=== PATIENT | female | born 1975 | race Caucasian/White ===

== ENCOUNTER 2018-06-13 14:13 | Emergency (ER) | payer SELFPAY ==
[2018-06-13] MEDS ORDERED: IBUPROFEN 600 MG TABLET PO ONE (15:01)
--- NOTE | 2018-06-13 15:47 | RADIOLOGY REPORT (SQ) ---
EXAM DESCRIPTION: FOOT RIGHT COMPLETE COMPLETED DATE/TIME: 06/13/2018 3:22 pm REASON FOR STUDY: stubbed toe, dorsal foot pain/swelling COMPARISON: None. NUMBER OF VIEWS: Three views. TECHNIQUE: AP, lateral and oblique radiographic images acquired of the right foot. LIMITATIONS: None. FINDINGS: MINERALIZATION: Normal. BONES: No acute fracture or dislocation. No worrisome bone lesions. JOINTS: No effusions. SOFT TISSUES: Diffuse swelling over the forefoot. No foreign body. OTHER: No other significant finding. IMPRESSION: No fracture. TECHNICAL DOCUMENTATION: JOB ID: [id number] [employer]- All Rights Reserved Reading location - IP/workstation name: [email or web address]
--- NOTE | 2018-06-13 16:53 | ER Document Report ---
HPI - HPI Pain Level: 5 Notes: Patient is a female who presents with chief complaint of foot pain. Patient reports she has been having problems with her bilateral heels so she has been walking on the balls of her feet. She states that approximately 1 week ago she hit the front of her toe on a door jam, she reports it is the fourth toe on the right foot, she thinks it may be broken. Patient also reports she has chronic swelling of her ankles which she has been seen by her primary care provider for. She states she has taken diuretics before however they did not help so she stopped taking them. - CONSTITUTIONAL Constitutional: DENIES: Fever, Chills - EENT EENT: DENIES: Sore Throat, Ear Pain, Eye problems - NEURO Neurology: DENIES: Headache, Weakness, Vision blurred, Dizzinesss / Vertigo - CARDIOVASCULAR Cardiovascular: DENIES: Chest pain - RESPIRATORY Respiratory: DENIES: Trouble Breathing, Coughing - GASTROINTESTINAL Gastrointestinal: DENIES: Abdominal Pain, Black / Bloody Stools - URINARY Urinary: DENIES: Dysuria, Urgency, Frequency - MUSCULOSKELETAL Musculoskeletal: REPORTS: Extremity pain - right foot Past Medical History - General Information source: Patient - Social History Smoking Status: Current Every Day Smoker Chew tobacco use (# tins/day): No Frequency of alcohol use: None Drug Abuse: None Family History: Reviewed & Not Pertinent Patient has suicidal ideation: No Patient has homicidal ideation: No Endocrine Medical History: Reports: Hx Diabetes Mellitus Type 2 Renal/ Medical History: Denies: Hx Peritoneal Dialysis Past Surgical History: Reports: Hx Breast Surgery - augmentation Vertical Provider Document - CONSTITUTIONAL Notes: PHYSICAL EXAMINATION: GENERAL: Well-appearing, well-nourished and in no acute distress. HEAD: Atraumatic, normocephalic. EYES: Pupils equal round extraocular movements intact, conjunctiva are normal. ENT: Nares patent NECK: Normal range of motion LUNGS: No respiratory distress Musculoskeletal: Normal range of motion, tenderness to palpation to dorsal surface of right foot superior to the fourth digit. Cap refill is less than 3 seconds, normal motor and sensation distal to area of concern. Normal pulses. NEUROLOGICAL: Normal speech, normal gait. PSYCH: Normal mood, normal affect. SKIN: Warm, Dry, normal turgor, no rashes or lesions noted. - INFECTION CONTROL TRAVEL OUTSIDE OF THE [place] IN LAST 30 DAYS: No Course - Re-evaluation Re-evalutation: X-rays negative for any acute findings to include fracture or dislocation. Patient will be placed with an Sterling wrap and given crutches for discomfort. Patient instructed to take ibuprofen and ice and elevate. Patient given information for primary care providers that she states she currently does not have one. Procedures - Immobilization Right foot Immobilizer type: Sterling wrap, Crutches Discharge - Discharge Clinical Impression: Right foot injury Qualifiers: Encounter type: initial encounter Qualified Code(s): S99.921A - Unspecified injury of right foot, initial encounter Condition: Stable Disposition: HOME, SELF-CARE Additional Instructions: SPRAIN: Your injury is a sprain. A sprain results from stretching or tearing of the ligaments, usually from a twisting injury. The ligaments will require time and protection in order to heal properly. Many sprains are quite disabling and should be taken seriously. The usual initial treatment of sprains is cold packs, elevation, and rest of the injured area. Your physician has assessed the seriousness of your ligament injury, and has outlined a treatment plan. Understand that this treatment may change, depending on how you progress. If a re-examination was recommended, it is important that you follow up as instructed. Call the doctor any time if there is severe pain, numbness, or loss of function in the injured area. STERLING WRAP: A compression dressing (sterling wrap) has been placed. This helps hold the area still. It limits swelling and internal bleeding. The wrap should be comfortably snug -- not tight. You should feel a sense of pressure, but not severe pain under the wrap. Unless the physician tells you otherwise, you can adjust the wrap for comfort. If the wrap causes symptoms suggesting it's too tight -- uncomfortable pressure, swelling or discoloration beyond the wrap, numbness, or severe pain - - you must loosen the wrap. If these symptoms don't resolve promptly, return for re-evaluation. USE OF CRUTCHES: The doctor has recommended that you not bear weight at this time. You will need to use crutches. Adjust the crutches so the tops come to about two inches under the armpit while you are standing upright. Use your hands -- not your armpits -- to support your weight. To get into a chair, support yourself with one crutch on the injured side. Hold the chair with the other hand, then lower yourself while putting all your weight on the good leg. Going up stairs is `good leg up, step up, then bring up crutches and bad leg.' Down stairs is `bad leg and crutches down, then bring good leg down.' If you develop numbness or swelling in an arm or hand, you are using the crutches incorrectly. Return if you are having any problems with the crutches. ICE & ELEVATION: Apply ice packs frequently against the painful area. Many different schedules are recommended, such as "20 minutes on, 20 minutes off" or "one hour ice, two hours rest." If you need to work, you may need to go longer between ice treatments. You should plan to have the area ice packed AT LEAST one- fourth of the time. The ice should be applied over the wrap, tape, or splint, or over a layer of cloth -- not directly against the skin. Some ice bags have a built-in cloth and can be put directly on the skin. Your injured part should be elevated as much as possible over the next 48 hours. Try to keep the injury above the level of the heart. Avoid use of the injured area. Elevation and rest will decrease the swelling. USE OF [id number]-[id number] IBUPROFEN: Ibuprofen (Advil, Nuprin, Medipren, Motrin IB) is a medication for fever and pain control. In addition, it has anti- inflammatory effects which may be beneficial, especially in the treatment of injuries. It's best to take ibuprofen with food. Persons with ulcer disease or allergy to aspirin should notify their physician of this before taking ibuprofen. Ibuprofen can be given every four to six hours, for a total of four doses daily. Age Pain or fever dose Antiinflammatory dose 15-adult 400 mg (2 tab) 600 mg (3 tab) FOLLOW-UP CARE: If you have been referred to a physician for follow-up care, call the physician s office for an appointment as you were instructed or within the next two days. If you experience worsening or a significant change in your symptoms, notify the physician immediately or return to the Emergency Department at any time for re-evaluation. The x-ray done today was negative meaning there is no fracture or dislocation in your foot. Please use the Sterling wrap for comfort and compression. Take ibuprofen 600 mg every 6 hours for pain and inflammation. Ice and elevate as outlined above. Use the crutches to help you get around. Follow-up with your primary care provider in the next 5-7 days.
== END 2018-06-13 17:15 | disposition home or self-care (01) ==
LOC: ER 14:13
DX: S99.921A Unspecified injury of right foot, initial encounter (principal); W22.09XA Striking against other stationary object, initial encounter; M79.89 Other specified soft tissue disorders; F17.200 Nicotine dependence, unspecified, uncomplicated; E11.9 Type 2 diabetes mellitus without complications
CPT/HCPCS: 99283

== ENCOUNTER 2018-06-17 12:02 | Inpatient (IN) | payer SELFPAY ==
--- NOTE | 2018-06-17 13:14 | ER Document Report ---
ED Medical Screen (RME) - General Chief Complaint: Foot Pain Stated Complaint: PAIN/SWELLING TO RIGHT FOOT Time Seen by Provider: 06/17/18 13:03 Mode of Arrival: Ambulatory Information source: Patient Notes: 42-year-old female presents emergency department with complaints of bilateral leg and feet pain. Patient states that her right lower extremity began hurting a week and a half ago. She was seen in the emergency department and discharged home. Patient states that now her bilateral feet are turning purple. She is having worsening pain in her bilateral feet. She is having increased swelling in her legs. Patient denies any chest pain or shortness of breath. I have greeted and performed a rapid initial assessment of this patient. A comprehensive ED assessment and evaluation of the patient, analysis of test results and completion of the medical decision making process will be conducted by additional ED providers. PHYSICAL EXAMINATION: GENERAL: Well-appearing, well-nourished and in no acute distress. HEAD: Atraumatic, normocephalic. EYES: Pupils equal round extraocular movements intact, conjunctiva are normal. ENT: Nares patent NECK: Normal range of motion LUNGS: No respiratory distress Musculoskeletal: Normal range of motion. Bilateral calf tenderness to palpation. 2+ pitting edema. Bilateral purple toes. Unable to obtain pulses in the bilateral feet. NEUROLOGICAL: Normal speech, normal gait. PSYCH: Normal mood, normal affect. SKIN: Warm, Dry, normal turgor, no rashes or lesions noted. TRAVEL OUTSIDE OF THE [place] IN LAST 30 DAYS: No - Related Data Allergies/Adverse Reactions: No Known Allergies Allergy (Verified 06/17/18 12:03) Past Medical History - Social History Frequency of alcohol use: None Drug Abuse: None Endocrine Medical History: Reports: Hx Diabetes Mellitus Type 2 Renal/ Medical History: Denies: Hx Peritoneal Dialysis Past Surgical History: Reports: Hx Breast Surgery - augmentation Physical Exam - Vital signs Vitals: Temp Pulse Resp BP Pulse Ox 98.0 F 92 18 123/72 100 06/17/18 12:06 06/17/18 12:06 06/17/18 12:06 06/17/18 12:06 06/17/18 12:06 Course - Vital Signs Vital signs: Temp Pulse Resp BP Pulse Ox 98.0 F 92 18 123/72 100 06/17/18 12:06 06/17/18 12:06 06/17/18 12:06 06/17/18 12:06 06/17/18 12:06
--- NOTE | 2018-06-17 15:47 | ER Document Report ---
ED Extremity Problem, Lower - General Chief Complaint: Foot Pain Stated Complaint: PAIN/SWELLING TO RIGHT FOOT Time Seen by Provider: 06/17/18 13:03 Mode of Arrival: Ambulatory Information source: Patient Notes: 42-year-old female presents to ED for complaint of bilateral leg and feet swelling. She states she had pain and swelling about a week ago when she was seen in the emergency room and sent home. She states recently she was seen in [place] and told that she had ovarian tumors and needed to come out right away. She was told that she had to pay $600 upfront and she states she did not have $600. She states she also was seen in [place] about 2 months and they told her she had severe colitis and that she needed to have a colonoscopy but she did not have the money for the colonoscopy so she has not had that either. She states she is continuing to have new symptoms and does not have money for insurance or for hospital bills. TRAVEL OUTSIDE OF THE [place] IN LAST 30 DAYS: No - HPI Patient complains to provider of: Pain Location: Ankle, Foot, Knee, Leg, Thigh Occurred: Other - Last 1-2 weeks Onset/Duration: Gradual, Worse Quality of pain: Dull, Pressure, Stabbing, Throbbing Severity: Severe Pain Level: 5 Recent injury: No Associated symptoms: Painful ambulation Exacerbated by: Movement, Walking Relieved by: Nothing - Related Data Allergies/Adverse Reactions: No Known Allergies Allergy (Verified 06/17/18 12:03) Past Medical History - General Information source: Patient - Social History Smoking Status: Current Every Day Smoker Cigarette use (# per day): Yes - Half to 1 packs/day Chew tobacco use (# tins/day): No Smoking Education Provided: Yes - 4 minutes Frequency of alcohol use: None Drug Abuse: None Lives with: Parents Family History: Reviewed & Not Pertinent Patient has suicidal ideation: No Patient has homicidal ideation: No - Past Medical History Cardiac Medical History: Reports: None Pulmonary Medical History: Reports: None EENT Medical History: Reports: None Neurological Medical History: Reports: None Endocrine Medical History: Reports: Hx Diabetes Mellitus Type 2 Renal/ Medical History: Reports: Other - Ovarian tumors Malignancy Medical History: Reports: None GI Medical History: Reports: Other - Colitis Musculoskeletal Medical History: Reports None Skin Medical History: Reports None Psychiatric Medical History: Reports: None Traumatic Medical History: Reports: None Infectious Medical History: Reports: None Past Surgical History: Reports: Hx Breast Surgery - augmentation - Immunizations Immunizations up to date: No Hx Diphtheria, Pertussis, Tetanus Vaccination: No Review of Systems - Review of Systems Constitutional: No symptoms reported EENT: No symptoms reported Cardiovascular: No symptoms reported Respiratory: No symptoms reported Gastrointestinal: Abdominal pain Genitourinary: No symptoms reported Female Genitourinary: Other - Pelvic pain Musculoskeletal: Leg swelling, Ankle swelling Skin: No symptoms reported Hematologic/Lymphatic: No symptoms reported Neurological/Psychological: No symptoms reported -: Yes All other systems reviewed and negative Physical Exam - Vital signs Vitals: Temp Pulse Resp BP Pulse Ox 98.0 F 92 18 123/72 100 06/17/18 12:06 06/17/18 12:06 06/17/18 12:06 06/17/18 12:06 06/17/18 12:06 Interpretation: Normal - General General appearance: Appears well, Alert - HEENT Head: Normocephalic, Atraumatic Eyes: Normal Pupils: PERRL - Respiratory Respiratory status: No respiratory distress Chest status: Nontender Breath sounds: Normal Chest palpation: Normal - Cardiovascular Rhythm: Regular Heart sounds: Normal auscultation Murmur: No - Abdominal Inspection: Normal Distension: No distension Bowel sounds: Normal Tenderness: Nontender Organomegaly: No organomegaly - Back Back: Normal, Nontender - Extremities General upper extremity: Normal inspection, Nontender, Normal color, Normal ROM , Normal temperature General lower extremity: Normal ROM, Normal temperature, Normal weight bearing. No: Chari's sign Thigh: Tender Knee: Pain with ROM, Patellar tendon intact, Other - Swelling. No: Tender joint line, Unable to bear weight Calf: Tender, Other - Swelling Ankle: Tender, Edema - 3+ Foot: Tender, Edema - 2+, No evidence of FB - Neurological Neuro grossly intact: Yes Cognition: Normal Orientation: AAOx4 Walt Coma Scale Eye Opening: Spontaneous Crowder Coma Scale Verbal: Oriented Crowder Coma Scale Motor: Obeys Commands Walt Coma Scale Total: 15 Speech: Normal Motor strength normal: LUE, RUE, LLE, RLE Sensory: Normal - Psychological Associated symptoms: Normal affect, Normal mood - Skin Skin Temperature: Warm Skin Moisture: Dry Skin Color: Normal Location of irregularity: Extremities - Edema discoloration swelling tender Course - Vital Signs Vital signs: Temp Pulse Resp BP Pulse Ox 97.7 F 87 17 104/60 100 06/18/18 00:31 06/18/18 00:31 06/18/18 00:31 06/18/18 00:31 06/18/18 00:31 - Laboratory Result Diagrams: 06/17/18 16:00 06/17/18 16:00 Laboratory results interpreted by me: 06/17/18 06/17/18 06/17/18 16:00 16:00 16:00 BUN 24 H Carcinoembryonic Ag 5.5 H Urine Blood MODERATE H Ur Leukocyte Esterase TRACE H Discharge - Discharge Clinical Impression: Pulmonary nodule, Liver nodule, SCLEROTIC OSSEOUS LESIONS Disposition: ADMITTED INPATIENT Admitting Provider: Hospitalist - [facility] Unit Admitted: Medical Floor
[2018-06-17 16:20] LABS: ABSOLUTE BASOPHILS # (AUTO) 0.1 10^3/uL (0.0-0.2); ABSOLUTE EOSINOPHILS # (AUTO) 0.3 10^3/uL (0.0-0.6); ABSOLUTE LYMPHOCYTES (AUTO) 2.1 10^3/uL (0.5-4.7); ABSOLUTE MONOCYTES (AUTO) 0.6 10^3/uL (0.1-1.4); ABSOLUTE NEUT (AUTO) 5.6 10^3/uL (1.7-8.2); BASOPHILS % (AUTO) 1.2 % (0-2); EOSINOPHILS % (AUTO) 3.9 % (0-6); HEMATOCRIT 38.9 % (36.0-47.0); HEMOGLOBIN 13.2 g/dL (12.0-15.5); LYMPHOCYTES % (AUTO) 24.3 % (13-45); MEAN CORPUSCULAR VOLUME 88 fl (80-97); MONOCYTES % (AUTO) 6.5 % (3-13); PLATELET COUNT 365 10^3/uL (150-450); RED BLOOD COUNT 4.41 10^6/uL (3.72-5.28); RED CELL DISTRIBUTION WIDTH 13.8 % (11.5-14.0); SEGMENTED NEUTROPHILS % (AUTO) 64.1 % (42-78); TOTAL CELLS COUNTED % (AUTO) 100 %; WHITE BLOOD COUNT 8.8 10^3/uL (4.0-10.5)
[2018-06-17 16:28] LABS: ALANINE AMINOTRANSFERASE 21 U/L (9-52); ALBUMIN 4.5 g/dL (3.5-5.0); ALKALINE PHOSPHATASE 100 U/L (38-126); ANION GAP 11 (5-19); ASPARTATE AMINO TRANSFERASE 26 U/L (14-36); BILIRUBIN,DIRECT 0.2 mg/dL (0.0-0.4); BILIRUBIN,TOTAL 0.7 mg/dL (0.2-1.3); BLOOD UREA NITROGEN 24 mg/dL (7-20); CALCIUM 9.3 mg/dL (8.4-10.2); CARBON DIOXIDE 25 mmol/L (22-30); CHLORIDE 107 mmol/L (98-107); GLUCOSE 95 mg/dL (75-110); SODIUM 142.9 mmol/L (137-145); TOTAL PROTEIN 7.9 g/dL (6.3-8.2)
[2018-06-17 16:36] LABS: APPEARANCE,URINE SLIGHTLY-CLOUDY; BILIRUBIN,URINE NEGATIVE (NEGATIVE); COLOR,URINE YELLOW; GLUCOSE, URINE NEGATIVE (NEGATIVE); KETONES,URINE NEGATIVE (NEGATIVE); LEUKOCYTE ESTERASE,URINE TRACE (NEGATIVE); NITRITE,URINE NEGATIVE (NEGATIVE); PROTEIN,URINE NEGATIVE (NEGATIVE); URINE SPECIFIC GRAVITY 1.027; UROBILINOGEN,URINE NEGATIVE mg/dL (<2.0)
--- NOTE | 2018-06-17 16:48 | RADIOLOGY REPORT (SQ) ---
EXAM DESCRIPTION: CT ABD/PELVIS WITH IV ONLY COMPLETED DATE/TIME: 06/17/2018 4:22 pm REASON FOR STUDY: abdominal pain hx of ovarian tumor pedal edema COMPARISON: None. TECHNIQUE: CT scan of the abdomen and pelvis performed using helical scanning technique with dynamic intravenous contrast injection. No oral contrast. Images reviewed with lung, soft tissue, and bone windows. Reconstructed coronal and sagittal MPR images reviewed. Delayed images for evaluation of the urinary system also acquired. All images stored on PACS. All CT scanners at this facility use dose modulation, iterative reconstruction, and/or weight based d osing when appropriate to reduce radiation dose to as low as reasonably achievable (ALARA). [facility]: Dose Right [facility]: CareDose [facility]: Dose Right [facility]: Teradose 4D [facility]: [employer] CONTRAST TYPE AND DOSE: contrast/concentration: Isovue 350.00 mg/ml; Total Contrast Delivered: 82.0 ml; Total Saline Delivered: 68.0 ml RENAL FUNCTION: None required. The patient is less than 50 years old. RADIATION DOSE: CT Rad equipment meets quality standard of care and radiation dose reduction techniq ues were employed. CTDIvol: NaN - NaN mGy. DLP: 0 mGy-cm.. LIMITATIONS: None. FINDINGS: LOWER CHEST: There scattered small peripheral pulmonary nodules. See image 1 and image 10 . Other, pinpoint nodules are suggested. LIVER: A couple small low-density lesions are seen in the right lobe. The larger is seen on image 28 series 3 and image 34 series 5. This measures about 12 or 13 mm. SPLEEN: Normal size. No focal lesions. PANCREAS: No masses. No significant calcifications. No adjacent inflammation or peripancreatic fluid collections. Pancreatic duct not dilated. GALLBLADDER: Contracted. No stones. ADRENAL GLANDS: No significant masses or asymmetry. RIGHT KIDNEY AND URETER: No solid masses. No significant calcifications. No hydronephrosis or hyd roureter. LEFT KIDNEY AND URETER: No solid masses. No significant calcifications. No hydronephrosis or hydr oureter. AORTA AND VESSELS: No aneurysm. No dissection. Renal arteries, SMA, celiac without stenosis. RETROPERITONEUM: No retroperitoneal adenopathy, hemorrhage or masses. BOWEL AND PERITONEAL CAVITY: No masses or inflammatory changes. No free fluid or peritoneal masses. APPENDIX: Normal. PELVIS: There is a 3 x 4 cm left adnexal cyst. There is no free fluid in the pelvis. Urinary bladde r is incompletely filled but otherwise unremarkable. ABDOMINAL WALL: No masses. No hernias. BONES: There are several sclerotic lesions in the bones of the pelvis concerning for metastases. OTHER: No other significant finding. IMPRESSION: 1. There are several very small pulmonary nodules concerning for metastases. 2. There are 2 low-density hepatic lesions. The larger shows early enhancement but appears to washo ut slightly compared to the surrounding hepatic parenchyma. 3. There are some small sclerotic osseous lesions. Concerning for metastases. 4. There is a 3 x 4 cm left adnexal cyst. TECHNICAL DOCUMENTATION: JOB ID: [id number] Quality ID # [id number]: Final reports with documentation of one or more dose reduction techniques (e.g., Au tomated exposure control, adjustment of the mA and/or kV according to patient size, use of iterative reconstruction technique) 2010 [employer]- All Rights Reserved Reading location - IP/workstation name: [email or web address]
--- NOTE | 2018-06-17 18:13 | PDOC H&P ---
History of Present Illness Admission Date/PCP: 06/17/18 17:48 Patient complains of: Bilateral lower extremity swelling History of Present Illness: PHILIPP KOENIG is a 42 year old female very unfortunate lady with no significant past medical history presents to ED complaining of worsening lateral lower extremity edema and pain. She states for the last 1 year she has been having on and off random musculoskeletal pain and excessive weight gain and abdominal bloating. She did not make too much of it but over a year ago year ago she was evaluated at [facility] was told that she has an ovarian mass which could likely be cancerous and it had need to come out right away but unfortunately could not undergo any type of evaluation due to financial reasons. Denies any family history of malignancy. She is currently taking care of her mother. Denies any fever, chills, nausea, vomiting, chest pain, shortness of breath, diarrhea, constipation or any urinary symptoms. In ED a CT of abdomen showed possible metastatic lesions to the lung and liver. Oncologist was consulted and they recommended for the patient to be admitted as inpatient. Past Medical History Cardiac Medical History: Reports: None Pulmonary Medical History: Reports: None NT Medical History: Reports: None Neurological Medical History: Reports: None Endocrine Medical History: Reports: Diabetes Mellitus Type 2 Renal/ Medical History: Reports: Other - Ovarian tumors Malignancy Medical History: Reports: None GI Medical History: Reports: Other - Colitis Musculoskeltal Medical History: Reports: None Skin Medical History: Reports: None Psychiatric Medical History: Reports: None Traumatic Medical History: Reports: None Infectious Medical History: Reports: None Social History Lives with: Parents Smoking Status: Current Every Day Smoker Family History Family History: Reviewed & Not Pertinent Parental Family History Reviewed: Yes Children Family History Reviewed: Yes Sibling(s) Family History Reviewed.: Yes Medication/Allergy Home Medications: No Home Medications 06/17/18 Allergies/Adverse Reactions: No Known Allergies Allergy (Verified 06/17/18 12:03) Review of Systems Constitutional: PRESENT: fatigue, weight gain Respiratory: ABSENT: cough, hemoptysis Gastrointestinal: PRESENT: bloating. ABSENT: abdominal pain, constipation, diarrhea, hematemesis, hematochezia, nausea, vomiting Genitourinary: ABSENT: dysuria, hematuria Musculoskeletal: PRESENT: other - Lateral lower extremity pain and numbness. Integumentary: ABSENT: rash, wounds Neurological: PRESENT: numbness, paresthesias - Bilateral lower extremity numbness and paresthesias. ABSENT: abnormal gait, abnormal speech, confusion, dizziness, focal weakness, syncope Physical Exam Vital Signs: Temp Pulse Resp BP Pulse Ox 97.8 F 92 18 127/81 H 100 06/17/18 17:34 06/17/18 17:34 06/17/18 17:34 06/17/18 17:34 06/17/18 17:34 General appearance: PRESENT: no acute distress, well-developed, well-nourished Head exam: PRESENT: atraumatic, normocephalic Neck exam: ABSENT: carotid bruit, JVD, lymphadenopathy, thyromegaly Respiratory exam: PRESENT: clear to auscultation shadia. ABSENT: rales, rhonchi, wheezes Cardiovascular exam: PRESENT: RRR. ABSENT: diastolic murmur, rubs, systolic murmur Pulses: PRESENT: normal dorsalis pedis pul GI/Abdominal exam: PRESENT: normal bowel sounds, soft. ABSENT: distended, guarding, mass, organolmegaly, rebound, tenderness Extremities exam: PRESENT: full ROM, pedal edema, other - Bilateral lower extremity nonpitting edema.. ABSENT: calf tenderness, clubbing Neurological exam: PRESENT: alert, awake, oriented to person, oriented to place , oriented to time, oriented to situation, CN II-XII grossly intact. ABSENT: motor sensory deficit Results Impressions: Abdomen/Pelvis CT 06/17/18 15:39 IMPRESSION: 1. There are several very small pulmonary nodules concerning for metastases. 2. There are 2 low-density hepatic lesions. The larger shows early enhancement but appears to washout slightly compared to the surrounding hepatic parenchyma. 3. There are some small sclerotic osseous lesions. Concerning for metastases. 4. There is a 3 x 4 cm left adnexal cyst. Assessment & Plan - Diagnosis (1) Ovarian cancer Is this a current diagnosis for this admission?: Yes Plan: Likely metastatic ovarian cancer. Admit to medical floor. Will obtain brain and chest CT. Consult oncology for further recommendation. (2) Metastatic cancer to liver Is this a current diagnosis for this admission?: Yes Plan: #1 (3) Swelling of both lower extremities Is this a current diagnosis for this admission?: Yes Plan: Likely complication of metastatic ovarian cancer. Supportive management. Follow oncology recommendation.
[2018-06-17] MEDS ORDERED: PROMETHAZINE HCL 25 MG TABLET PO PRN (18:20)
[2018-06-17] MEDS ORDERED: IPRATROPIUM/ALBUTEROL 0.5-2.5 MG/3 ML AMPUL NEB PRN (18:20)
[2018-06-17] MEDS ORDERED: ACETAMINOPHEN 325 MG TABLET PO PRN (18:20)
--- NOTE | 2018-06-17 18:34 | XCELERA REPORT ---
[address] [facility] [address] Lower Extremity Venous Evaluation Procedure: Color flow and duplex imaging bilaterally of the veins of the lower extremities as well as the Common Femoral veins. Right Sided Venous Evaluation Normal vessel filling wall to wall, compression and augmentation as well as Colour flow down to the infrageniculate veins. Left Sided Venous Evaluation Normal vessel filling wall to wall, compression and augmentation as well as Colour flow down to the infrageniculate veins. Interpretation Summary No duplex evidence of DVT or obstruction in the bilateral lower extremities. Name: PHILIPP KOENIG Age: 42 yrs Gender: Female : 1975 Patient Status: Emergency Patient Location: ER Study Date: 06/17/2018 01:48 PM Reason For Study: pain right leg / Hx clots Ordering Physician: ESTRELLITA ORTIZ Performed By: Aide Pablo : ESTRELLITA ORTIZ > Junior Llanos
[2018-06-17] MEDS ORDERED: ENOXAPARIN SODIUM INJ 40 MG/0.4 ML DISP.SYRIN SUBCUT ONE (19:00)
[2018-06-17] MEDS: OXYCODONE-ACETAMINOPHEN 5-325 MG TABLET PO PRN (19:02)
--- NOTE | 2018-06-17 19:45 | RADIOLOGY REPORT (SQ) ---
EXAM DESCRIPTION: CT HEAD WITHOUT COMPLETED DATE/TIME: 06/17/2018 7:01 pm REASON FOR STUDY: Metastatic ovarian cancer COMPARISON: None. TECHNIQUE: Axial images acquired through the brain without intravenous contrast. Images reviewed wi th bone, brain and subdural windows. Additional sagittal and coronal reconstructions were generated. Images stored on PACS. All CT scanners at this facility use dose modulation, iterative reconstruction, and/or weight based d osing when appropriate to reduce radiation dose to as low as reasonably achievable (ALARA). [facility]: Dose Right [facility]: CareDose [facility]: Dose Right [facility]: Teradose 4D [facility]: Smart [employer] RADIATION DOSE: CT Rad equipment meets quality standard of care and radiation dose reduction techniq ues were employed. CTDIvol: 53.2 mGy. DLP: 1150 mGy-cm. mGy. LIMITATIONS: None. FINDINGS: VENTRICLES: Normal size and contour. CEREBRUM: No masses. No hemorrhage. No midline shift. No evidence for acute infarction. Normal gra y/white matter differentiation. No areas of low density in the white matter. CEREBELLUM: No masses. No hemorrhage. No alteration of density. No evidence for acute infarction. EXTRAAXIAL SPACES: No fluid collections. No masses. ORBITS AND GLOBE: No intra- or extraconal masses. Normal contour of globe without masses. CALVARIUM: No fracture. PARANASAL SINUSES: No fluid or mucosal thickening. SOFT TISSUES: No mass or hematoma. OTHER: No other significant finding. IMPRESSION: NORMAL BRAIN CT WITHOUT CONTRAST. EVIDENCE OF ACUTE STROKE: NO. COMMENT: Quality ID # [id number]: Final reports with documentation of one or more dose reduction techniques (e.g., Automated exposure control, adjustment of the mA and/or kV according to patient size, use of iterative reconstruction technique) TECHNICAL DOCUMENTATION: JOB ID: [id number] [employer]- All Rights Reserved Reading location - IP/workstation name: [email or web address]
--- NOTE | 2018-06-17 19:48 | RADIOLOGY REPORT (SQ) ---
EXAM DESCRIPTION: CT CHEST WITHOUT COMPLETED DATE/TIME: 06/17/2018 7:01 pm REASON FOR STUDY: Metastatic ovarian cancer COMPARISON: None. TECHNIQUE: CT scan performed of the chest without intravenous contrast. Images reviewed with lung, soft tissue and bone windows. Reconstructed coronal and sagittal MPR images reviewed. All images st ored on PACS. All CT scanners at this facility use dose modulation, iterative reconstruction, and/or weight based d osing when appropriate to reduce radiation dose to as low as reasonably achievable (ALARA). [facility]: Dose Right [facility]: CareDose [facility]: Dose Right [facility]: Teradose 4D [facility]: [employer] RADIATION DOSE: CT Rad equipment meets quality standard of care and radiation dose reduction techniq ues were employed. CTDIvol: 14.4 mGy. DLP: 559 mGy-cm. mGy. LIMITATIONS: No technical limitations. FINDINGS: LUNGS AND PLEURA: No masses, infiltrates, or pneumothorax. No pleural effusions or pleura l calcifications. HILAR AND MEDIASTINAL STRUCTURES: No identified masses or abnormal nodes. No obvious aneurysm. HEART AND VASCULAR STRUCTURES: No aneurysm. No pericardial effusion. UPPER ABDOMEN: See separate report of the CT of the abdomen. THYROID AND OTHER SOFT TISSUES: No masses. No adenopathy. BONES: No significant finding. HARDWARE: None in the chest. OTHER: No other significant findings. IMPRESSION: NO SIGNIFICANT FINDING ON NON-CONTRASTED CHEST CT. TECHNICAL DOCUMENTATION: JOB ID: [id number] Quality ID # [id number]: Final reports with documentation of one or more dose reduction techniques (e.g., Au tomated exposure control, adjustment of the mA and/or kV according to patient size, use of iterative reconstruction technique) 2010 [employer]- All Rights Reserved Reading location - IP/workstation name: [email or web address]
[2018-06-17] MEDS: ZOLPIDEM TARTRATE 5 MG TABLET PO SCH (21:30)
[2018-06-17] MEDS: FAMOTIDINE 20 MG TABLET PO SCH (21:30)
[2018-06-18] MEDS: OXYCODONE-ACETAMINOPHEN 5-325 MG TABLET PO PRN ×2 (05:38→20:32)
[2018-06-18 06:04] LABS: ABSOLUTE BASOPHILS # (AUTO) 0.1 10^3/uL (0.0-0.2); ABSOLUTE EOSINOPHILS # (AUTO) 0.3 10^3/uL (0.0-0.6); ABSOLUTE LYMPHOCYTES (AUTO) 2.8 10^3/uL (0.5-4.7); ABSOLUTE MONOCYTES (AUTO) 0.5 10^3/uL (0.1-1.4); BASOPHILS % (AUTO) 0.9 % (0-2); EOSINOPHILS % (AUTO) 4.2 % (0-6); HEMATOCRIT 36.4 % (36.0-47.0); HEMOGLOBIN 12.5 g/dL (12.0-15.5); LYMPHOCYTES % (AUTO) 36.3 % (13-45); MEAN CORPUSCULAR HEMOGLOBIN 30.2 pg (27.0-33.4); MEAN CORPUSCULAR HGB CONC 34.3 g/dL (32.0-36.0); MEAN CORPUSCULAR VOLUME 88 fl (80-97); MONOCYTES % (AUTO) 6.9 % (3-13); PLATELET COUNT 314 10^3/uL (150-450); RED BLOOD COUNT 4.13 10^6/uL (3.72-5.28); RED CELL DISTRIBUTION WIDTH 13.7 % (11.5-14.0); SEGMENTED NEUTROPHILS % (AUTO) 51.7 % (42-78); TOTAL CELLS COUNTED % (AUTO) 100 %; WHITE BLOOD COUNT 7.7 10^3/uL (4.0-10.5)
[2018-06-18 06:22] LABS: ALANINE AMINOTRANSFERASE 17 U/L (9-52); ALBUMIN 3.7 g/dL (3.5-5.0); ALKALINE PHOSPHATASE 72 U/L (38-126); ANION GAP 7 (5-19); ASPARTATE AMINO TRANSFERASE 22 U/L (14-36); BILIRUBIN,DIRECT 0.2 mg/dL (0.0-0.4); BILIRUBIN,TOTAL 0.7 mg/dL (0.2-1.3); BLOOD UREA NITROGEN 17 mg/dL (7-20); CALCIUM 8.9 mg/dL (8.4-10.2); CARBON DIOXIDE 27 mmol/L (22-30); CHLORIDE 107 mmol/L (98-107); GLUCOSE 94 mg/dL (75-110); POTASSIUM 4.3 mmol/L (3.6-5.0); TOTAL PROTEIN 6.6 g/dL (6.3-8.2)
--- NOTE | 2018-06-18 08:45 | PDOC CONSULTATION ---
Consultation Consult Date: 06/18/18 Attending physician:: ROBERTO IRVIN Consult reason:: Patient with long-standing ovarian cyst but new findings of liver lesions, bone lesions, lesions History of Present Illness Admission Date/PCP: 06/17/18 17:48 Patient complains of: Bilateral lower extremity swelling, weight gain, severe constipation with BRBPR History of Present Illness: PHILIPP KOENIG is a 42 year old female with recent history of worsening constipation. She has had constipation for many years, but over the last 6 months it is became severe, and she has noticed BRBPR. Apparently several months ago she had a CT scan done at [facility], and was told that she has "colitis" and that she needs a colonoscopy. However, unfortunately , she is uninsured so she was not able to get that done, instead her PCP at [facility] apparently sent a Cologuard stool sample that apparently was negative. In the last few weeks she is noticed bilateral lower extremity edema, and weight gain. She presented here and had CT of the chest abdomen pelvis, CT of the abdomen pelvis indicated a 3 x 4 cm left adnexal cyst (of note , the patient tells me that she has had a cyst in the left ovary for 10 years, thus far they have only been monitoring it in the past), but also two liver lesions, multiple subcentimeter pulmonary nodules, and sclerotic bone lesions. I was called from the ED yesterday, and I recommended them to send a CA 125 which is pending as well as a CEA which is elevated at 5.5. Of note, she does have strong family history of malignancy with a maternal grandmother who at age 53 of colon cancer, a sister who had endometrial cancer, status post total hysterectomy. Apparently her mother also had a total hysterectomy at an early age for cervical cancer. Past Medical History Cardiac Medical History: Reports: None Pulmonary Medical History: Reports: None EENT Medical History: Reports: None Neurological Medical History: Reports: None Endocrine Medical History: Reports: Other - Hypoglycemia Renal/ Medical History: Reports: Other - Ovarian cyst, left long-standing Malignancy Medical History: Reports: None GI Medical History: Reports: Other - Colitis Musculoskeltal Medical History: Reports: None Skin Medical History: Reports: None Psychiatric Medical History: Reports: None Traumatic Medical History: Reports: None Infectious Medical History: Reports: None Past Surgical History Past Surgical History: Reports: Other - Breast augmentation Social History Information Source: Patient Lives with: Parents Smoking Status: Current Every Day Smoker Cigarettes Packs Per Day: 1 Number of Years Smokin Last Time Smoked: t Frequency of Alcohol Use: Rare Hx Recreational Drug Use: No Drugs: None Hx Prescription Drug Abuse: No - Advance Directive Resuscitation Status: Full Code Family History Family History: Malignancy - Mother with cervical cancer status post hysterectomy, maternal grandmother colon cancer age 53, sister with endometrial cancer status post hysterectomy. Parental Family History Reviewed: Yes Children Family History Reviewed: Yes Sibling(s) Family History Reviewed.: Yes Medication/Allergy Home Medications: No Home Medications 06/17/18 Allergies/Adverse Reactions: No Known Allergies Allergy (Verified 06/17/18 12:03) Review of Systems Constitutional: PRESENT: anorexia, fatigue Cardiovascular: ABSENT: chest pain, dyspnea on exertion, edema, orthropnea, palpitations Gastrointestinal: PRESENT: constipation, hematochezia Integumentary: ABSENT: rash, wounds Neurological: ABSENT: abnormal gait, abnormal speech, confusion, dizziness, focal weakness, syncope Physical Exam Vital Signs: Temp Pulse Resp BP Pulse Ox 97.7 F 87 17 104/60 100 06/18/18 00:31 06/18/18 00:31 06/18/18 00:31 06/18/18 00:31 06/18/18 00:31 Intake & Output 06/17/18 06/18/18 06/19/18 06:59 06:59 06:59 Intake Total 528 Balance 528 Weight 76.8 kg General appearance: PRESENT: no acute distress, well-developed, well-nourished Head exam: PRESENT: atraumatic, normocephalic Eye exam: PRESENT: conjunctiva pink, EOMI, PERRLA. ABSENT: scleral icterus Ear exam: PRESENT: normal external ear exam Mouth exam: PRESENT: moist, tongue midline Neck exam: ABSENT: carotid bruit, JVD, lymphadenopathy, thyromegaly Respiratory exam: PRESENT: clear to auscultation shadia. ABSENT: rales, rhonchi, wheezes Cardiovascular exam: PRESENT: RRR. ABSENT: diastolic murmur, rubs, systolic murmur Pulses: PRESENT: normal dorsalis pedis pul Vascular exam: PRESENT: normal capillary refill GI/Abdominal exam: PRESENT: normal bowel sounds, soft. ABSENT: distended, guarding, mass, organolmegaly, rebound, tenderness Rectal exam: PRESENT: deferred Extremities exam: PRESENT: full ROM. ABSENT: calf tenderness, clubbing, pedal edema Neurological exam: PRESENT: alert, awake, oriented to person, oriented to place , oriented to time, oriented to situation, CN II-XII grossly intact. ABSENT: motor sensory deficit Psychiatric exam: PRESENT: appropriate affect, normal mood. ABSENT: homicidal ideation, suicidal ideation Skin exam: PRESENT: dry, intact, warm. ABSENT: cyanosis, rash Results Laboratory Results: 06/18/18 05:47 06/18/18 05:47 06/18/18 06/18/18 05:47 05:47 WBC 7.7 RBC 4.13 Hgb 12.5 Hct 36.4 MCV 88 MCH 30.2 MCHC 34.3 RDW 13.7 Plt Count 314 Seg Neutrophils % 51.7 Lymphocytes % 36.3 Monocytes % 6.9 Eosinophils % 4.2 Basophils % 0.9 Absolute Neutrophils 4.0 Absolute Lymphocytes 2.8 Absolute Monocytes 0.5 Absolute Eosinophils 0.3 Absolute Basophils 0.1 Sodium 141.0 Potassium 4.3 Chloride 107 Carbon Dioxide 27 Anion Gap 7 BUN 17 Creatinine 0.63 Est GFR ( Amer) > 60 Est GFR (Non-Af Amer) > 60 Glucose 94 Calcium 8.9 Total Bilirubin 0.7 AST 22 ALT 17 Alkaline Phosphatase 72 Total Protein 6.6 Albumin 3.7 Impressions: Chest CT 06/17/18 00:00 IMPRESSION: NO SIGNIFICANT FINDING ON NON-CONTRASTED CHEST CT. Head CT 06/17/18 00:00 IMPRESSION: NORMAL BRAIN CT WITHOUT CONTRAST. EVIDENCE OF ACUTE STROKE: NO. Abdomen/Pelvis CT 06/17/18 15:39 IMPRESSION: 1. There are several very small pulmonary nodules concerning for metastases. 2. There are 2 low-density hepatic lesions. The larger shows early enhancement but appears to washout slightly compared to the surrounding hepatic parenchyma. 3. There are some small sclerotic osseous lesions. Concerning for metastases. 4. There is a 3 x 4 cm left adnexal cyst. Status: Image reviewed by me Assessment & Plan - Diagnosis (1) Metastatic cancer to liver Is this a current diagnosis for this admission?: Yes Plan: Liver lesions, unknown cause, concerning for malignancy. Plan first for colonoscopy, if this is negative then we need to go for liver biopsy. (2) Constipation Qualifiers: Constipation type: other constipation type Qualified Code(s): K59.09 - Other constipation Is this a current diagnosis for this admission?: Yes Plan: Severe constipation, concerning for colonic abnormality, discussed with Dr. Hassan who will put him on for colonoscopy tomorrow, he will write orders for bowel prep. (3) Family history of colon cancer Is this a current diagnosis for this admission?: Yes Plan: Strong family history of Roach type cancers, she will need hereditary screening as an outpatient. - Time Time Spent: Greater than 70 Minutes - Inpatient Certification Based on my medical assessment, after consideration of the patient's comorbidities, presenting symptoms, or acuity I expect that the services needed warrant INPATIENT care.: Yes I certify that my determination is in accordance with my understanding of Medicare's requirements for reasonable and necessary INPATIENT services [42 CFR 412.3e].: Yes Medical Necessity: Need for Surgery, Risk of Complication if Not Cared For in Hospital
[2018-06-18] MEDS ORDERED: PEG 3350/NA SULF,BICARB,CL/KCL 4000 ML PO ONE (09:30)
[2018-06-18] MEDS: ENOXAPARIN SODIUM INJ 40 MG/0.4 ML DISP.SYRIN SUBCUT SCH (09:41)
[2018-06-18] MEDS: FAMOTIDINE 20 MG TABLET PO SCH ×2 (09:47→21:55)
--- NOTE | 2018-06-18 12:37 | PDOC CONSULTATION ---
Consultation Consult Date: 06/18/18 Attending physician:: KASHMIR SANTOS Consult reason:: history of possible colitis History of Present Illness Admission Date/PCP: 06/17/18 17:48 History of Present Illness: PHILIPP KOENIG is a 42 year old female patient admitted to the Hospitalist service has questionable history of possible ovarian cancer patient apparently on CT scan to have possible metastatic lesions to the liver patient was told that she had colitis in the past however no mention of this on current imaging study no anemia, normal H/H patient denies any bleeding requested to have colonoscopy done will need Propofol sedation Past Medical History Cardiac Medical History: Reports: None Pulmonary Medical History: Reports: None EENT Medical History: Reports: None Neurological Medical History: Reports: None Endocrine Medical History: Reports: Diabetes Mellitus Type 2, Other - Hypoglycemia Renal/ Medical History: Reports: Other - Ovarian cyst, left long-standing Malignancy Medical History: Reports: None GI Medical History: Reports: Other - Colitis Musculoskeltal Medical History: Reports: None Skin Medical History: Reports: None Psychiatric Medical History: Reports: None Traumatic Medical History: Reports: None Infectious Medical History: Reports: None Past Surgical History Past Surgical History: Reports: Other - Breast augmentation Social History Lives with: Parents Smoking Status: Current Every Day Smoker Cigarettes Packs Per Day: 1 Number of Years Smokin Last Time Smoked: t Frequency of Alcohol Use: Rare Hx Recreational Drug Use: No Drugs: None Hx Prescription Drug Abuse: No - Advance Directive Resuscitation Status: Full Code Family History Family History: Malignancy - Mother with cervical cancer status post hysterectomy, maternal grandmother colon cancer age 53, sister with endometrial cancer status post hysterectomy. Parental Family History Reviewed: Yes Children Family History Reviewed: Unknown Sibling(s) Family History Reviewed.: Unknown Medication/Allergy Home Medications: No Home Medications 06/17/18 Allergies/Adverse Reactions: No Known Allergies Allergy (Verified 06/17/18 12:03) Review of Systems Constitutional: ABSENT: fever(s), headache(s), night sweats Eyes: ABSENT: visual disturbances Ears: ABSENT: hearing changes Nose, Mouth, and Throat: ABSENT: mouth pain, sore throat Cardiovascular: ABSENT: orthropnea Respiratory: ABSENT: dyspnea, hemoptysis Gastrointestinal: ABSENT: coffee ground emesis, diarrhea, hematemesis Genitourinary: ABSENT: dysuria, hematuria Musculoskeletal: ABSENT: deformity, joint swelling Integumentary: ABSENT: pruritus Neurological: ABSENT: syncope, tingling, tremor(s), vertigo Endocrine: ABSENT: polydipsia, polyphagia, polyuria Hematologic/Lymphatic: ABSENT: easy bruising Physical Exam Vital Signs: Temp Pulse Resp BP Pulse Ox 97.7 F 87 17 104/60 100 06/18/18 00:31 06/18/18 00:31 06/18/18 00:31 06/18/18 00:31 06/18/18 00:31 Intake & Output 06/17/18 06/18/18 06/19/18 06:59 06:59 06:59 Intake Total 528 Balance 528 Weight 76.8 kg General appearance: PRESENT: no acute distress, well-developed, well-nourished Head exam: PRESENT: atraumatic, normocephalic Eye exam: PRESENT: EOMI, PERRLA. ABSENT: nystagmus, periorbital swelling, scleral icterus Mouth exam: PRESENT: moist, neck supple Throat exam: ABSENT: tonsillar exudate, tonsillogmegaly Neck exam: ABSENT: meningismus, tenderness Respiratory exam: PRESENT: symmetrical, unlabored. ABSENT: tachypnea, wheezes Cardiovascular exam: PRESENT: RRR, +S1, +S2 GI/Abdominal exam: PRESENT: soft. ABSENT: rebound, rigid, tenderness Extremities exam: ABSENT: joint swelling Neurological exam: PRESENT: oriented to time, oriented to situation, CN II-XII grossly intact Focused psych exam: ABSENT: restlessness Skin exam: ABSENT: mottled, pallor, urticaria, vesicles Results Laboratory Results: 06/18/18 05:47 06/18/18 05:47 06/18/18 06/18/18 05:47 05:47 WBC 7.7 RBC 4.13 Hgb 12.5 Hct 36.4 MCV 88 MCH 30.2 MCHC 34.3 RDW 13.7 Plt Count 314 Seg Neutrophils % 51.7 Lymphocytes % 36.3 Monocytes % 6.9 Eosinophils % 4.2 Basophils % 0.9 Absolute Neutrophils 4.0 Absolute Lymphocytes 2.8 Absolute Monocytes 0.5 Absolute Eosinophils 0.3 Absolute Basophils 0.1 Sodium 141.0 Potassium 4.3 Chloride 107 Carbon Dioxide 27 Anion Gap 7 BUN 17 Creatinine 0.63 Est GFR ( Amer) > 60 Est GFR (Non-Af Amer) > 60 Glucose 94 Calcium 8.9 Total Bilirubin 0.7 AST 22 ALT 17 Alkaline Phosphatase 72 Total Protein 6.6 Albumin 3.7 Impressions: Chest CT 06/17/18 00:00 IMPRESSION: NO SIGNIFICANT FINDING ON NON-CONTRASTED CHEST CT. Head CT 06/17/18 00:00 IMPRESSION: NORMAL BRAIN CT WITHOUT CONTRAST. EVIDENCE OF ACUTE STROKE: NO. Abdomen/Pelvis CT 06/17/18 15:39 IMPRESSION: 1. There are several very small pulmonary nodules concerning for metastases. 2. There are 2 low-density hepatic lesions. The larger shows early enhancement but appears to washout slightly compared to the surrounding hepatic parenchyma. 3. There are some small sclerotic osseous lesions. Concerning for metastases. 4. There is a 3 x 4 cm left adnexal cyst. Assessment & Plan - Diagnosis (1) Constipation Qualifiers: Constipation type: other constipation type Qualified Code(s): K59.09 - Other constipation Is this a current diagnosis for this admission?: Yes Plan: has had a change in her bowel habits colonoscopy to exclude possible obstruction (2) Family history of colon cancer Is this a current diagnosis for this admission?: Yes Plan: needs to have screening done Risks, benefits and alternatives are discussed with the patient she will need Propofol sedation Further recommendations to follow - Time Time Spent: 50 to 70 Minutes
--- NOTE | 2018-06-18 13:44 | PDOC PROGRESS REPORT ---
Subjective Progress Note for:: 06/18/18 Subjective:: Ms. Sanchez is a 42 yr old female who initially presented with worsening bilateral leg swelling and chronic constipation. Upon presentation, patient had a CT of the abdomen done which revealed multiple possible metastatic lesions in the liver, lungs and bone and a left adnexal cyst as well. Patient was admitted and oncology was also consulted. Upon encountered this morning, patient appears comfortable but is tearful. She denies abdominal pain. She denies melena or hematemesis. She denies gross hematochezia but does say that from time to time she would notice bright red bloody specks on her stools. She was recently admitted at [facility] a few months back and was noted to have a colitis on CAT scan. She was recommended to undergo for follow-up outpatient colonoscopy but apparently patient is unable to comply with this. She does have a significant malignancies in the family. Reason For Visit: METASTATIC OVARIAN CANCER Physical Exam Vital Signs: Temp Pulse Resp BP Pulse Ox 97.7 F 72 16 107/58 L 98 06/18/18 10:24 06/18/18 11:18 06/18/18 11:18 06/18/18 10:24 06/18/18 11:18 Intake & Output 06/17/18 06/18/18 06/19/18 06:59 06:59 06:59 Intake Total 528 444 Balance 528 444 Weight 169 lb 5.04 oz General appearance: PRESENT: no acute distress, well-developed, well-nourished Head exam: PRESENT: atraumatic, normocephalic Eye exam: PRESENT: conjunctiva pink, EOMI, PERRLA. ABSENT: scleral icterus Ear exam: PRESENT: normal external ear exam Mouth exam: PRESENT: moist, tongue midline Neck exam: ABSENT: carotid bruit, JVD, lymphadenopathy, thyromegaly Respiratory exam: PRESENT: clear to auscultation shadia. ABSENT: rales, rhonchi, wheezes Cardiovascular exam: PRESENT: RRR. ABSENT: diastolic murmur, rubs, systolic murmur Pulses: PRESENT: normal dorsalis pedis pul GI/Abdominal exam: PRESENT: normal bowel sounds, soft. ABSENT: distended, guarding, mass, organolmegaly, rebound, tenderness Rectal exam: PRESENT: deferred Extremities exam: PRESENT: +2 edema Neurological exam: PRESENT: alert, awake, oriented to person, oriented to place , oriented to time, oriented to situation, CN II-XII grossly intact. ABSENT: motor sensory deficit Results Laboratory Results: 06/18/18 05:47 06/18/18 05:47 06/18/18 06/18/18 05:47 05:47 WBC 7.7 RBC 4.13 Hgb 12.5 Hct 36.4 MCV 88 MCH 30.2 MCHC 34.3 RDW 13.7 Plt Count 314 Seg Neutrophils % 51.7 Lymphocytes % 36.3 Monocytes % 6.9 Eosinophils % 4.2 Basophils % 0.9 Absolute Neutrophils 4.0 Absolute Lymphocytes 2.8 Absolute Monocytes 0.5 Absolute Eosinophils 0.3 Absolute Basophils 0.1 Sodium 141.0 Potassium 4.3 Chloride 107 Carbon Dioxide 27 Anion Gap 7 BUN 17 Creatinine 0.63 Est GFR ( Amer) > 60 Est GFR (Non-Af Amer) > 60 Glucose 94 Calcium 8.9 Total Bilirubin 0.7 AST 22 ALT 17 Alkaline Phosphatase 72 Total Protein 6.6 Albumin 3.7 Impressions: Chest CT 06/17/18 00:00 IMPRESSION: NO SIGNIFICANT FINDING ON NON-CONTRASTED CHEST CT. Head CT 06/17/18 00:00 IMPRESSION: NORMAL BRAIN CT WITHOUT CONTRAST. EVIDENCE OF ACUTE STROKE: NO. Abdomen/Pelvis CT 06/17/18 15:39 IMPRESSION: 1. There are several very small pulmonary nodules concerning for metastases. 2. There are 2 low-density hepatic lesions. The larger shows early enhancement but appears to washout slightly compared to the surrounding hepatic parenchyma. 3. There are some small sclerotic osseous lesions. Concerning for metastases. 4. There is a 3 x 4 cm left adnexal cyst. Assessment & Plan - Diagnosis (1) Metastatic cancer to liver Is this a current diagnosis for this admission?: Yes Plan: Oncology following. Patient will be worked up to evaluate fro primary source of cancer. Patient will be going for colonoscopy tomorrow. (2) Pulmonary nodule Is this a current diagnosis for this admission?: Yes Plan: As per number #1. (3) Swelling of both lower extremities Is this a current diagnosis for this admission?: Yes Plan: Possibly lymphedema related to malignancy. - Time Time Spent with patient: 15-24 minutes
[2018-06-18] MEDS: ZOLPIDEM TARTRATE 5 MG TABLET PO SCH (21:55)
[2018-06-19] MEDS ORDERED: ONDANSETRON HCL INJ/PF 4 MG/2 ML SDV ONE (07:43)
[2018-06-19] MEDS ORDERED: NALOXONE HCL INJ/PF 0.4 MG/1 ML SDV ONE (07:44)
[2018-06-19] MEDS ORDERED: FLUMAZENIL INJ 0.5 MG/5 ML VIAL ONE (07:44)
[2018-06-19] MEDS ORDERED: GLUCAGON,HUMAN RECOMB 1 MG INJ ONE (07:44)
[2018-06-19] MEDS ORDERED: EPINEPHRINE INJ 1 MG/10 ML DISP.SYRIN ONE (07:44)
--- NOTE | 2018-06-19 08:04 | PDOC PROGRESS REPORT ---
Subjective Progress Note for:: 06/19/18 Subjective:: Prep was completed yesterday and pt had clear BMs most recently, colonoscopy planned this am. Reason For Visit: METASTATIC OVARIAN CANCER Physical Exam Vital Signs: Temp Pulse Resp BP Pulse Ox 98.2 F 73 16 109/61 98 06/19/18 07:47 06/19/18 07:47 06/19/18 07:47 06/19/18 07:47 06/19/18 07:47 Intake & Output 06/18/18 06/19/18 06/20/18 06:59 06:59 06:59 Intake Total 528 862 Balance 528 862 Weight 76.8 kg 77.1 kg General appearance: PRESENT: no acute distress, well-developed, well-nourished Head exam: PRESENT: atraumatic, normocephalic Eye exam: PRESENT: conjunctiva pink, EOMI, PERRLA. ABSENT: scleral icterus Ear exam: PRESENT: normal external ear exam Mouth exam: PRESENT: moist, tongue midline Neck exam: ABSENT: carotid bruit, JVD, lymphadenopathy, thyromegaly Respiratory exam: PRESENT: clear to auscultation shadia. ABSENT: rales, rhonchi, wheezes Cardiovascular exam: PRESENT: RRR. ABSENT: diastolic murmur, rubs, systolic murmur Pulses: PRESENT: normal dorsalis pedis pul Vascular exam: PRESENT: normal capillary refill GI/Abdominal exam: PRESENT: normal bowel sounds, soft. ABSENT: distended, guarding, mass, organolmegaly, rebound, tenderness Rectal exam: PRESENT: deferred Extremities exam: PRESENT: full ROM. ABSENT: calf tenderness, clubbing, pedal edema Neurological exam: PRESENT: alert, awake, oriented to person, oriented to place , oriented to time, oriented to situation, CN II-XII grossly intact. ABSENT: motor sensory deficit Psychiatric exam: PRESENT: appropriate affect, normal mood. ABSENT: homicidal ideation, suicidal ideation Skin exam: PRESENT: dry, intact, warm. ABSENT: cyanosis, rash Results Laboratory Results: 06/18/18 05:47 06/18/18 05:47 Impressions: Chest CT 06/17/18 00:00 IMPRESSION: NO SIGNIFICANT FINDING ON NON-CONTRASTED CHEST CT. Head CT 06/17/18 00:00 IMPRESSION: NORMAL BRAIN CT WITHOUT CONTRAST. EVIDENCE OF ACUTE STROKE: NO. Abdomen/Pelvis CT 06/17/18 15:39 IMPRESSION: 1. There are several very small pulmonary nodules concerning for metastases. 2. There are 2 low-density hepatic lesions. The larger shows early enhancement but appears to washout slightly compared to the surrounding hepatic parenchyma. 3. There are some small sclerotic osseous lesions. Concerning for metastases. 4. There is a 3 x 4 cm left adnexal cyst. Status: Image reviewed by me Assessment & Plan - Diagnosis (1) Metastatic cancer to liver Is this a current diagnosis for this admission?: Yes Plan: As noted prev colonoscopy planned today, if negative, need to follow w/ liver bx tomorrow (2) Constipation Qualifiers: Constipation type: other constipation type Qualified Code(s): K59.09 - Other constipation Is this a current diagnosis for this admission?: Yes Plan: Planned for colonoscopy today, have called radiology to let me know if liver lesions are accessible in case the colonoscopy is negative or non diagnostic, if colonoscopy shows large obstructive lesion then I will consult surgery for consideration of primary colon surgery as pt has severe obstructive sx as outpt (3) Family history of colon cancer Is this a current diagnosis for this admission?: Yes Plan: Genetic screening as outpt planned - Time Time Spent with patient: 35 or more minutes - Inpatient Certification Based on my medical assessment, after consideration of the patient's comorbidities, presenting symptoms, or acuity I expect that the services needed warrant INPATIENT care.: Yes I certify that my determination is in accordance with my understanding of Medicare's requirements for reasonable and necessary INPATIENT services [42 CFR 412.3e].: Yes Medical Necessity: Need for Surgery, Risk of Complication if Not Cared For in Hospital
[2018-06-19] MEDS: OXYCODONE-ACETAMINOPHEN 5-325 MG TABLET PO PRN (08:09)
[2018-06-19] MEDS: DIPHENHYDRAMINE HCL 50 MG/ML VIAL IV ONE ×2 (08:57→09:55)
[2018-06-19] MEDS: MIDAZOLAM 2 MG/2 ML INJ ONE ×3 (08:58→09:05)
[2018-06-19] MEDS: FENTANYL CITRATE INJ/PF 100 MCG/2 ML AMPUL ONE ×2 (09:00→09:03)
--- NOTE | 2018-06-19 09:21 | Operative Report ---
Operative Report DATE OF SURGERY: 06/19/18 Operative Report: The risks, benefits and alternatives of the procedure including the risk of bleeding, perforation requiring surgery are explained to the patient in detail and informed consent is obtained. The patient is brought back to the endoscopy suite and placed in the left, lateral decubital position. Timeout was called. Propofol medication is administered. Rectal examination is done which did not reveal any masses, tears or fissures. An Olympus videoscope is introduced into the patient's rectum. The scope was then carefully advanced all the way to the cecum. The cecum was identified by the usual anatomical landmarks including the ileocecal valve as well as the appendiceal office. Intubation of the terminal ileum is done ,prep is good. Photodocumentation is obtained. The scope was then sequentially pulled back via the various segments of the colon including the ascending colon, hepatic flexure, transverse colon, splenic flexure, descending colon and finding to the rectosigmoid portions of the colon. Retroflexion maneuver is performed. PREOPERATIVE DIAGNOSIS: Colorectal cancer screening POSTOPERATIVE DIAGNOSIS: Random biopsies taken in the terminal ileum. Normal screening colonoscopy. Prep was good OPERATION: Colonoscopy with biopsy SURGEON: KASHMIR SANTOS ANESTHESIA: Moderate Sedation - 25 mg of Benadryl, 6 mg of Versed, 100 mcg of fentanyl. Conscious sedation monitoring time 30 minutes. TISSUE REMOVED OR ALTERED: As noted above. COMPLICATIONS: None. ESTIMATED BLOOD LOSS: None. INTRAOPERATIVE FINDINGS: As noted above. PROCEDURE: Patient tolerated the procedure well. No immediate postprocedure comp occasions are noted. Patient sent back to her room in good condition. Resume previous diet and previous activity level. Wait on biopsies but suspect will be negative. Per oncology workup. Please call if any further questions
[2018-06-19] MEDS: ENOXAPARIN SODIUM INJ 40 MG/0.4 ML DISP.SYRIN SUBCUT SCH (10:02)
[2018-06-19] MEDS: FAMOTIDINE 20 MG TABLET PO SCH ×2 (10:10→22:23)
[2018-06-19] MEDS ORDERED: OXYCODONE HCL IR 5 MG TABLET PO PRN (11:39)
--- NOTE | 2018-06-19 16:35 | PDOC PROGRESS REPORT ---
Subjective Progress Note for:: 06/19/18 Subjective:: Ms. Sanchez is a 42 yr old female who initially presented with worsening bilateral leg swelling and constipation. Upon presentation, patient had a CT of the abdomen done which revealed multiple possible metastatic lesions in the liver, lungs and bone and a left adnexal cyst as well. Patient was admitted and oncology was also consulted. No acute event overnight. Patient just had colonoscopy done this morning which was unremarkable. She complains of occasional mild lower abdominal cramping from her menstruation. Denies chest pain or SOB. Reason For Visit: METASTATIC OVARIAN CANCER Physical Exam Vital Signs: Temp Pulse Resp BP Pulse Ox 98.2 F 89 16 112/59 L 97 06/19/18 16:19 06/19/18 16:19 06/19/18 16:19 06/19/18 16:19 06/19/18 16:19 Intake & Output 06/18/18 06/19/18 06/20/18 06:59 06:59 06:59 Intake Total 528 862 400 Balance 528 862 400 Weight 169 lb 5.04 oz 169 lb 15.622 oz General appearance: PRESENT: no acute distress, well-developed, well-nourished Head exam: PRESENT: atraumatic, normocephalic Eye exam: PRESENT: conjunctiva pink, EOMI, PERRLA. ABSENT: scleral icterus Ear exam: PRESENT: normal external ear exam Mouth exam: PRESENT: moist, tongue midline Neck exam: ABSENT: carotid bruit, JVD, lymphadenopathy, thyromegaly Respiratory exam: PRESENT: clear to auscultation shadia. ABSENT: rales, rhonchi, wheezes Cardiovascular exam: PRESENT: RRR. ABSENT: diastolic murmur, rubs, systolic murmur Pulses: PRESENT: normal dorsalis pedis pul GI/Abdominal exam: PRESENT: normal bowel sounds, soft. ABSENT: distended, guarding, mass, organolmegaly, rebound, tenderness Rectal exam: PRESENT: deferred Extremities exam: PRESENT: full ROM. ABSENT: calf tenderness, clubbing, pedal edema Neurological exam: PRESENT: alert, awake, oriented to person, oriented to place , oriented to time, oriented to situation, CN II-XII grossly intact. ABSENT: motor sensory deficit Results Laboratory Results: 06/18/18 05:47 06/18/18 05:47 Impressions: Chest CT 06/17/18 00:00 IMPRESSION: NO SIGNIFICANT FINDING ON NON-CONTRASTED CHEST CT. Head CT 06/17/18 00:00 IMPRESSION: NORMAL BRAIN CT WITHOUT CONTRAST. EVIDENCE OF ACUTE STROKE: NO. Abdomen/Pelvis CT 06/17/18 15:39 IMPRESSION: 1. There are several very small pulmonary nodules concerning for metastases. 2. There are 2 low-density hepatic lesions. The larger shows early enhancement but appears to washout slightly compared to the surrounding hepatic parenchyma. 3. There are some small sclerotic osseous lesions. Concerning for metastases. 4. There is a 3 x 4 cm left adnexal cyst. Assessment & Plan - Diagnosis (1) Metastatic cancer to liver Is this a current diagnosis for this admission?: Yes Plan: Oncology following. Patient will be worked up to evaluate for primary source of cancer. CEA is elevated. Colonoscopy was unremarkable. Patient is scheduled for a CT guided liver biopsy tomorrow. (2) Pulmonary nodule Is this a current diagnosis for this admission?: Yes Plan: Ct also revealed pulmonary nodules concerning for metasases. As per number #1. (3) Swelling of both lower extremities Is this a current diagnosis for this admission?: Yes (4) Bone metastases Is this a current diagnosis for this admission?: Yes Plan: CT also revealed likely pelvic metastatic foci. Working up for primary source as per #1. - Time Time Spent with patient: 15-24 minutes
--- NOTE | 2018-06-19 16:48 | RADIOLOGY REPORT (SQ) ---
EXAM DESCRIPTION: MRI ABDOMEN COMBO COMPLETED DATE/TIME: 06/19/2018 2:31 pm REASON FOR STUDY: POSSIBLE METASTATIC CANCER COMPARISON: Pelvic ultrasound 01/09/2013 [facility] CT abdomen pelvis 06/17/2018 here TECHNIQUE: Multiplanar multisequence imaging performed without and with contrast including sagittal, axial and coronal T2, axial T1, axial gradient fat sat T1, axial, sagittal and coronal fat sat T1 po st contrast. CONTRAST TYPE AND DOSE: 20 mL Dotarem. RENAL FUNCTION: None required. The patient is less than 50 years old. LIMITATIONS: Patient motion artifact FINDINGS: LIVER: Normal size. No masses. No dilated ducts. CBD normal. 1 cm right lobe liver and l eft lobe liver benign cysts are present. The right lobe liver cyst accounts for the finding on CT ab domen pelvis 06/17/2018. This finding was discussed with Dr. Goodman SPLEEN: Normal size. No focal lesions. PANCREAS: No masses. No adjacent inflammation or peripancreatic fluid collections. Pancreatic duct no t dilated. GALLBLADDER: No masses. No stones. No gallbladder wall thickening or pericholecystic fluid. ADRENAL GLANDS: No significant masses or asymmetry. RIGHT KIDNEY: No masses. No hydronephrosis. 1 cm right midpole renal cortical cyst. LEFT KIDNEY : No masses. No hydronephrosis. AORTA AND VESSELS: No aneurysm. No dissection. RETROPERITONEUM: No retroperitoneal adenopathy, hemorrhage or masses. BOWEL: Not well seen ABDOMINAL WALL AND PERITONEUM: No hernias. No free fluid. BONES: Multiple small bone islands are present OTHER: At the bottom edge of the field of view, on the coronal images there is a 3.8 cm complex left ovarian cyst with bright signal on fat saturated T1 weighted images likely a hemorrhagic cyst. Hemor rhagic dermoid is possible. Consider follow-up pelvic endovaginal ultrasound or pelvic MRI. Findings discussed with Dr. Goodman IMPRESSION: Benign hepatic cysts. Complex left ovarian lesion 3.8 cm in greatest size with increased intrinsic signal on fat saturated T1 weighted images likely representing a hemorrhagic cyst. Hemorrhagic dermoid is possible. This is similar in size compared to endovaginal ultrasound 01/09/2013. Findings discussed with Dr. Goodman TECHNICAL DOCUMENTATION: JOB ID: [id number] [employer]- All Rights Reserved Reading location - IP/workstation name: [facility]
--- NOTE | 2018-06-19 16:58 | XCELERA REPORT ---
[address] [address] Lower Extremity Arterial Evaluation Name: PHILIPP KOENIG Age: 42 yrs Gender: Female : 1975 Patient Status: Emergency Patient Location: ER Study Date: 06/17/2018 02:02 PM Procedure: A color flow and duplex scan of the lower extremity arteries was performed bilaterally with velocity and waveform anaylsis. Reason For Study: PAIN Ordering Physician: ESTRELLITA ORTIZ Performed By: Aide Pablo Measurements and Calculations Right Left TOP STITCHER PSV 234.6 256.5 cm/sec Prox PFA PSV -117.5 -125.1cm/sec Prox SFA PSV -128.2 -140.6cm/sec Mid SFA PSV -151.6 -159.8cm/sec Dist SFA PSV -143.0 -132.0cm/sec Prox Pop A PSV 90.4 102.0 cm/sec Dist TEQUILA PSV 89.4 74.3 cm/sec Dist ROAD DESIGN DRAFTSPERSON PSV 78.2 52.5 cm/sec Mak Pedis PSV 65.7 39.1 cm/sec Right Side Arterial Evaluation Normal velocity and triphasic waveforms, no spectral broadening noted from the Common Femoral artery to the Anterior Tibial artery . Biphasic Posterior tibial. 0-19% stenosis at the Posterior tibial. artery. Ankle Brachial index is not done due to swelling and pain.. Left Side Arterial Evaluation Normal velocity and triphasic waveforms, no spectral broadening noted from the Common Femoral artery to the Anterior Tibial artery . Biphasic Posterior tibial. 0-19% stenosis at the Posterior tibial. artery. Ankle Brachial index is not done due to swelling and pain.. Interpretation Summary Mild hemodynamically significant lesions in the bilateral lower extremities, on duplex imaging, at rest. : ESTRELLITA ORTIZ > Junior Llanos
[2018-06-19 17:28] LABS: INTERNATIONAL RATION (INR) 0.89; PROTHROMBIN TIME 12.5 SEC (11.4-15.4)
[2018-06-19] MEDS: ZOLPIDEM TARTRATE 5 MG TABLET PO SCH (22:23)
--- NOTE | 2018-06-20 08:32 | PDOC PROGRESS REPORT ---
Subjective Progress Note for:: 06/20/18 Subjective:: No acute events overnight, reviewed imaging with radiology, MRI of the liver indicates only cysts in the liver, I reviewed the previous imaging with radiology as well, she feels that the areas in the bone were probably just bony islands, and the nodules in the lung as noted previously were very small so probable granulomatous disease. The previous ovarian cyst was noted even back in 2012 on imaging here, and there has not been a major change. Is felt to be something like a dermoid cyst so it was recommended that she be evaluated by [facility]PER[facility] Reason For Visit: METASTATIC OVARIAN CANCER Physical Exam Vital Signs: Temp Pulse Resp BP Pulse Ox 97.3 F 81 17 111/81 100 06/20/18 00:26 06/20/18 00:26 06/20/18 00:26 06/20/18 00:26 06/20/18 00:26 Intake & Output 06/19/18 06/20/18 06/21/18 06:59 06:59 06:59 Intake Total 862 1748 Balance 862 1748 Weight 77.1 kg 77 kg Results Laboratory Results: 06/18/18 05:47 06/18/18 05:47 Impressions: Chest CT 06/17/18 00:00 IMPRESSION: NO SIGNIFICANT FINDING ON NON-CONTRASTED CHEST CT. Head CT 06/17/18 00:00 IMPRESSION: NORMAL BRAIN CT WITHOUT CONTRAST. EVIDENCE OF ACUTE STROKE: NO. Abdomen/Pelvis CT 06/17/18 15:39 IMPRESSION: 1. There are several very small pulmonary nodules concerning for metastases. 2. There are 2 low-density hepatic lesions. The larger shows early enhancement but appears to washout slightly compared to the surrounding hepatic parenchyma. 3. There are some small sclerotic osseous lesions. Concerning for metastases. 4. There is a 3 x 4 cm left adnexal cyst. Abdomen MRI 06/19/18 00:00 IMPRESSION: Benign hepatic cysts. Complex left ovarian lesion 3.8 cm in greatest size with increased intrinsic signal on fat saturated T1 weighted images likely representing a hemorrhagic cyst. Hemorrhagic dermoid is possible. This is similar in size compared to endovaginal ultrasound 01/09/2013. Findings discussed with Dr. Goodman Assessment & Plan - Diagnosis (1) Metastatic cancer to liver Is this a current diagnosis for this admission?: Yes Plan: Does not appear to be metastatic disease, only cysts (2) Constipation Qualifiers: Constipation type: other constipation type Qualified Code(s): K59.09 - Other constipation Is this a current diagnosis for this admission?: Yes Plan: Colonoscopy negative, no malignancy thus far (3) Family history of colon cancer Is this a current diagnosis for this admission?: Yes Plan: Would consider pursuing genetic testing as outpt (4) Ovarian cyst Qualifiers: Laterality: left Qualified Code(s): N83.202 - Unspecified ovarian cyst, left side Is this a current diagnosis for this admission?: Yes Plan: Will refer pt to criminal defense attorney onc as outpt - Time Disposition: d/c home today
[2018-06-20] MEDS: FAMOTIDINE 20 MG TABLET PO SCH (09:02)
[2018-06-20] MEDS: ENOXAPARIN SODIUM INJ 40 MG/0.4 ML DISP.SYRIN SUBCUT SCH (09:02)
[2018-06-20 09:11] VITALS: BP 122/65
--- NOTE | 2018-06-20 14:57 | PDOC DISCHARGE SUMMARY ---
General - Admit/Disc Date/PCP Admission Date/Primary Care Provider: 06/17/18 17:48 Discharge Date: 06/20/18 - Discharge Diagnosis (1) Metastatic cancer to liver Is this a current diagnosis for this admission?: Yes (2) Pulmonary nodule Is this a current diagnosis for this admission?: Yes (3) Swelling of both lower extremities Is this a current diagnosis for this admission?: Yes (4) Bone metastases Is this a current diagnosis for this admission?: Yes - Additional Information Resuscitation Status: Full Code Home Medications: No Home Medications 06/17/18 History of Present Illness History of Present Illness: Admitting hospitalist's H&P: PHILIPP SANCHEZ is a 42 year old female with no significant past medical history who presented with complaining of worsening lateral lower extremity edema and pain. She states for the last 1 year she has been having on and off random muscle pains, progressive bipedal swelling, excessive weight gain and abdominal bloating. She did not make too much of it but over a year ago year ago she was evaluated at [facility] was told that she has an ovarian mass which could likely be cancerous and it had need to come out right away but unfortunately could not undergo any type of evaluation due to financial reasons. In the ED a CT of abdomen showed possible metastatic lesions to the lung, pelvic bone and liver. Oncologist was consulted and they recommended for the patient to be admitted for workup. Hospital Course Hospital Course: Ms. Sanchez is a 42 yr old female who initially presented with worsening bilateral leg swelling and constipation. Upon presentation, patient had a CT of the abdomen done which revealed multiple possible metastatic lesions in the liver, lungs and bone and a left adnexal cyst as well. Patient was admitted and oncology was also consulted. Colonoscopy was done as she did have a previous recent admission for a colitis and was not able to comply with ff-up outpatient colonoscopy. This came back negative. She was scheduled for a liver biopsy but MRI of the liver revealed that possible metastatic foci on the CT were actually benign cysts. Liver biopsy was cancelled. Oncology also discussed results with patient and deem the pulmonary lesions could be granulomatous nodules. She does have a left ovarian complex mass measuring 3.8 cm which appears to be a possible hemorrhagic dermoid cyst. She was cleared for discharge. Oncology will see her outpatient for further work-up and will set her up with a gyne oncologist in [place] for work up and possible removal of ovarian mass. Discussed plan with patient and family who are amenable to plan. Physical Exam Vital Signs: Temp Pulse Resp BP Pulse Ox 97.6 F 71 16 122/65 98 06/20/18 07:00 06/20/18 07:00 06/20/18 07:00 06/20/18 07:00 06/20/18 07:00 Intake & Output 06/19/18 06/20/18 06/21/18 06:59 06:59 06:59 Intake Total 862 1748 Balance 862 1748 Weight 169 lb 15.622 oz 169 lb 12.095 oz General appearance: PRESENT: no acute distress, well-developed, well-nourished Head exam: PRESENT: atraumatic, normocephalic Eye exam: PRESENT: conjunctiva pink, EOMI, PERRLA. ABSENT: scleral icterus Ear exam: PRESENT: normal external ear exam Mouth exam: PRESENT: moist, tongue midline Neck exam: ABSENT: carotid bruit, JVD, lymphadenopathy, thyromegaly Respiratory exam: PRESENT: clear to auscultation shadia. ABSENT: rales, rhonchi, wheezes Cardiovascular exam: PRESENT: RRR, other - breast exam: patient has breast implants but unable to palpate any significant mass or nodules, no palpable lymph nodes on the axiallary regions as well. ABSENT: diastolic murmur, rubs, systolic murmur Pulses: PRESENT: normal dorsalis pedis pul GI/Abdominal exam: PRESENT: normal bowel sounds, soft. ABSENT: distended, guarding, mass, organolmegaly, rebound, tenderness Rectal exam: PRESENT: deferred Extremities exam: PRESENT: full ROM, pedal edema, +2 edema. ABSENT: calf tenderness, clubbing Neurological exam: PRESENT: alert, awake, oriented to person, oriented to place , oriented to time, oriented to situation, CN II-XII grossly intact. ABSENT: motor sensory deficit Results Laboratory Results: 06/18/18 05:47 06/18/18 05:47 Impressions: Chest CT 06/17/18 00:00 IMPRESSION: NO SIGNIFICANT FINDING ON NON-CONTRASTED CHEST CT. Head CT 06/17/18 00:00 IMPRESSION: NORMAL BRAIN CT WITHOUT CONTRAST. EVIDENCE OF ACUTE STROKE: NO. Abdomen/Pelvis CT 06/17/18 15:39 IMPRESSION: 1. There are several very small pulmonary nodules concerning for metastases. 2. There are 2 low-density hepatic lesions. The larger shows early enhancement but appears to washout slightly compared to the surrounding hepatic parenchyma. 3. There are some small sclerotic osseous lesions. Concerning for metastases. 4. There is a 3 x 4 cm left adnexal cyst. Abdomen MRI 06/19/18 00:00 IMPRESSION: Benign hepatic cysts. Complex left ovarian lesion 3.8 cm in greatest size with increased intrinsic signal on fat saturated T1 weighted images likely representing a hemorrhagic cyst. Hemorrhagic dermoid is possible. This is similar in size compared to endovaginal ultrasound 01/09/2013. Findings discussed with Dr. Goodman Qualifiers - * PATIENT BEING DISCHARGED WITH ANY OF THE FOLLOWING DIAGNOSIS: No
== END 2018-06-20 11:30 | disposition home or self-care (01) | DRG 436 ==
LOC: ER 12:02 → EH 17:48 → 5 19:10
PROVIDERS: ADMIT Emergency Medicine; ATTEND Emergency Medicine
PROC: 3E0F73Z Introduction of Anti-inflammatory into Respiratory Tract, Via Natural or Artificial Opening (ICD-10-PCS; 2018-06-18)
PROC: 0DBB8ZX Excision of Ileum, Via Natural or Artificial Opening Endoscopic, Diagnostic (ICD-10-PCS; principal; 2018-06-19 11:00)
DX: C78.7 Secondary malignant neoplasm of liver and intrahepatic bile duct (principal); C56.9 Malignant neoplasm of unspecified ovary; C79.51 Secondary malignant neoplasm of bone; R91.1 Solitary pulmonary nodule; E27.8 Other specified disorders of adrenal gland; E11.9 Type 2 diabetes mellitus without complications; K59.09 Other constipation; F17.210 Nicotine dependence, cigarettes, uncomplicated; Z59.9 Problem related to housing and economic circumstances, unspecified; Z98.82 Breast implant status; Z80.0 Family history of malignant neoplasm of digestive organs; Z80.41 Family history of malignant neoplasm of ovary
CPT/HCPCS: 36415; 45380; 70450; 71250; 74177; 74183; 80053; 81001; 82378; 85025; 85610; 86304; 88305; 93925; 93970; 99285; 99406; A9576; J0171; J1200; J1610; J1650; J2250; J2310; J2405; J3010; J3490

== ENCOUNTER → 2018-08-01 | Outpatient (CLI) | payer OTHER ==
--- NOTE | 2018-08-01 18:07 | RADIOLOGY REPORT (SQ) ---
EXAM DESCRIPTION: MRI RT LOWER EXTREMITY WITHOUT COMPLETED DATE/TIME: 08/01/2018 5:14 pm REASON FOR STUDY: RIGHT FOOT PAIN M79.671 M79.671 PAIN IN RIGHT FOOT COMPARISON: Plain radiographs. Negative. TECHNIQUE: Right ankle and foot images acquired and stored on PACS. Multiplanar images include fat s ensitive sequences as T1, fluid sensitive sequences as FST2/STIR, cartilage sensitive sequences as FS PD, and gradient echo sequences. LIMITATIONS: None. FINDINGS: BONE MARROW: There is a healing fracture of the distal 3rd metatarsal with exuberant callu s. EFFUSIONS: No subtalar or tibiotalar effusions. No loose bodies. Fluid in the 1st metatarsal phalang eal joint. OSSEOUS ARTICULATIONS: Normal tibiotalar, subtalar, talonavicular and calcaneocuboid joints. TALAR DOME AND TIBIAL PLAFOND: Normal cartilage. No osteochondral defect. ACHILLES TENDON: Intact without partial or full-thickness tear. No adjacent bursal fluid or edema. TIBIALIS ANTERIOR TENDON: Intact without edema at the 1st MT attachment. TIBIALIS POSTERIOR TENDON: Normal morphology and no edema at the navicular attachment. Fluid tendon sheath. . FLEXOR HALLUCIS LONGUS AND FLEXOR DIGITORUM TENDONS: Normal morphology. Fluid in the tendon sheaths. . No edema of the os trigonum. PERONEUS LONGUS AND BREVIS TENDON: Normal morphology. Fluid in the tendon sheaths. . No subluxation . ATFL, CFL, PTFL: Intact. No thickening or signal alteration. No katherine-ligamentous fluid. DELTOID LIGAMENT: Visualized components intact. TARSAL TUNNEL: No masses. No muscle atrophy. SINUS TARSI: No fluid. No reactive marrow edema or erosions. PLANTAR FASCIA: No signal alteration or tear. ADJACENT SOFT TISSUES: No masses. OTHER: No other significant finding. IMPRESSION: Healing fracture with exuberant callus of the distal 3rd metatarsal. Small amount of fluid in the tendon sheaths of medial and lateral tendons TECHNICAL DOCUMENTATION: JOB ID: [id number] [employer]- All Rights Reserved Reading location - IP/workstation name: [email or web address]
== END ==
LOC: RAD 18:18
DX: M79.671 Pain in right foot (principal)

== ENCOUNTER 2018-11-17 14:40 | Emergency (ER) | payer OTHER ==
[2018-11-17] MEDS ORDERED: CIPROFLOXACIN-HC OTIC SUSP 10 ML AS ONE (15:35)
[2018-11-17] MEDS ORDERED: LIDOCAINE 2% VISCOUS SOLN 20 ML UDCUP PO ONE (15:39)
--- NOTE | 2018-11-17 15:42 | ER Document Report ---
ED ENT - General Chief Complaint: Ear Pain Stated Complaint: EAR PAIN Time Seen by Provider: 11/17/18 15:06 Primary Care Provider: [facility] [Provider Group] - Follow up as needed [facility] - Follow up as needed Mode of Arrival: Ambulatory Information source: Patient Notes: 42-year-old female presents to ED for complaint of left-sided ear pain. She states she has had swelling and tenderness for the past couple days. She states last week she had some dental problems but this week it is only the left ear and her teeth do not. She is alert oriented respirations regular and unlabored speaking in full sentences walks with a even steady gait. She states she had to amoxicillin at home and took them yesterday and she took naproxen this morning. TRAVEL OUTSIDE OF THE [place] IN LAST 30 DAYS: No - HPI Patient complains to provider of: Ear problem Onset: Yesterday Onset/Duration: Gradual Quality of pain: Stabbing Severity: Severe Pain Level: 5 Location of pain: Ears Associated symptoms: Ear pain - Left Similar symptoms previously: Yes Recently seen / treated by doctor: No - Related Data Allergies/Adverse Reactions: No Known Allergies Allergy (Verified 06/17/18 12:03) Past Medical History - General Information source: Patient - Social History Smoking Status: Current Every Day Smoker Cigarette use (# per day): Yes - 1-2 cigarettes a day trying to quit Smoking Education Provided: Yes - 4 minutes Frequency of alcohol use: None Drug Abuse: None Lives with: Family Family History: Malignancy Patient has suicidal ideation: No Patient has homicidal ideation: No - Past Medical History Cardiac Medical History: Reports: None EENT Medical History: Reports: None Neurological Medical History: Reports: None Endocrine Medical History: Reports: Hx Diabetes Mellitus Type 2 Renal/ Medical History: Reports: None Malignancy Medical History: Reports: None GI Medical History: Reports: None Musculoskeletal Medical History: Reports None Skin Medical History: Reports None Psychiatric Medical History: Reports: None Traumatic Medical History: Reports: None Infectious Medical History: Reports: None Past Surgical History: Reports: Hx Breast Surgery - augmentation, Other - Breast augmentation - Immunizations Immunizations up to date: No Hx Diphtheria, Pertussis, Tetanus Vaccination: No Review of Systems - Review of Systems Constitutional: No symptoms reported EENT: Ear pain - Left, Ear discharge Cardiovascular: No symptoms reported Respiratory: No symptoms reported Gastrointestinal: No symptoms reported Genitourinary: No symptoms reported Female Genitourinary: No symptoms reported Musculoskeletal: No symptoms reported Skin: No symptoms reported Hematologic/Lymphatic: No symptoms reported Neurological/Psychological: No symptoms reported Physical Exam - Vital signs Vitals: Temp Pulse Resp BP Pulse Ox 97.9 F 108 H 16 138/68 H 99 11/17/18 14:56 11/17/18 14:56 11/17/18 14:56 11/17/18 14:56 11/17/18 14:56 Interpretation: Normal - General General appearance: Appears well, Alert - HEENT Head: Normocephalic, Atraumatic Eyes: Normal Pupils: PERRL Ears: Other - Pain with any palpation to the ear External canal: Erythema, Swollen Tympanic membrane: Normal Sinus: Normal Nasal: Normal Mouth/Lips: Normal Mucous membranes: Normal Pharynx: Normal Neck: Normal - Respiratory Respiratory status: No respiratory distress Chest status: Nontender Breath sounds: Normal Chest palpation: Normal - Cardiovascular Rhythm: Regular Heart sounds: Normal auscultation Murmur: No - Abdominal Inspection: Normal Distension: No distension Bowel sounds: Normal Tenderness: Nontender Organomegaly: No organomegaly - Back Back: Normal, Nontender - Extremities General upper extremity: Normal inspection, Nontender, Normal color, Normal ROM, Normal temperature General lower extremity: Normal inspection, Nontender, Normal color, Normal ROM, Normal temperature, Normal weight bearing. No: Chari's sign - Neurological Neuro grossly intact: Yes Cognition: Normal Orientation: AAOx4 [place] Coma Scale Eye Opening: Spontaneous Walt Coma Scale Verbal: Oriented Walt Coma Scale Motor: Obeys Commands Walt Coma Scale Total: 15 Speech: Normal Motor strength normal: LUE, RUE, LLE, RLE Sensory: Normal - Psychological Associated symptoms: Normal affect, Normal mood - Skin Skin Temperature: Warm Skin Moisture: Dry Skin Color: Normal Course - Vital Signs Vital signs: Temp Pulse Resp BP Pulse Ox 98.2 F 98 17 138/77 H 99 11/17/18 16:19 11/17/18 16:19 11/17/18 16:19 11/17/18 16:19 11/17/18 16:19 Discharge - Discharge Clinical Impression: Left otitis externa Qualifiers: Otitis externa type: unspecified type Chronicity: acute Qualified Code(s): H60.502 - Unspecified acute noninfective otitis externa, left ear Condition: Stable Disposition: HOME, SELF-CARE Additional Instructions: OTITIS EXTERNA: You have otitis externa -- an infection of the outer ear canal. This can be very painful. It's sometimes called "swimmer's ear," because it often occurs after prolonged water exposure. Many things, such as earwax and dirt in the ear, can contribute to it. The usual treatment is antibiotic/antiinflammatory ear drops. Occasionally, a wick will be placed in the ear to draw in the medicine. If the infection is severe, an oral antibiotic may be prescribed. Pain medication is often needed. Avoid getting water in the ear. Outer ear infections often take longer to heal than you might expect. Some tenderness and ache in the ear may persist for about two weeks. See your physician if you fail to improve as expected. Call the doctor at once if you develop fever, increasing swelling (particularly if it makes your ear "poke out"), severe headache, stiff neck, or decreased hearing. USE OF EAR DROPS: Your ear drops won't do much good if they don't get all the way in. To help the ear drops penetrate all the way to the ear drum, use the following technique. If you encounter problems of any kind, notify the physician. (1) Lay your head sideways on a pillow. (2) Place the dropper tip just barely inside the ear canal, almost touching the bottom side of the canal. The liquid is tolerated better on the bottom of the canal. (3) Squeeze out the appropriate amount of medicine, and remove the dropper. (4) Grab the back of the ear (just behind the ear canal) between your index finger and thumb. (5) Tug up, then let the ear drop back. Repeat several times. This pumps the medicine down. (6) Wait five minutes, then place a cotton ball in the ear canal to catch and hold the medicine. CIPROFLOXACIN: You have been given an antibacterial agent, ciprofloxacin (Cipro). This medicine is not related to the penicillins, sulfas, cephalosporins, or tetracyclines. It is often given to patients who are allergic to these drugs. It has been chosen for you either because other drugs are not appropriate, or because of the nature of your problem. Cipro should not be taken with antacids, as these can decrease its effectiveness. It can be taken without regard to meals. CIPRO SHOULD NOT BE TAKEN BY CHILDREN, NURSING WOMEN, OR WOMEN. Although Cipro is usually well-tolerated, common side effects can include nausea and diarrhea. Contact your doctor if you experience any unusual symptoms while on this medication, such as joint pain or swelling, shortness of breath, wheezing, faintness, or hives. USE OF ACETAMINOPHEN (Tylenol): Acetaminophen may be taken for pain relief or fever control. It's much safer than aspirin, offering a wider range of "safe" dosages. It is safe during . Some brand names are Tylenol, Panadol, Datril, Anacin 3, Tempra, and Liquiprin. Acetaminophen can be repeated every four hours. The following are maximum recommended dosages: WEIGHT Dose Drops Elixir Chewable(80mg) (LBS.) drprs=droppers tsp=teaspoon 6 40 mg 0.4 ml (1/2) 6-11 80 mg 0.8 ml (full) tsp 1 tab 12-16 120 mg 1 1/2 drprs 3/4 tsp 1 1/2 tabs 17-23 160 mg 2 drprs 1 tsp 2 tabs 24-30 240 mg 3 drprs 1 1/2 tsp 3 tabs 30-35 320 mg 2 tsp 4 tabs 36-41 360 mg 2 1/4 tsp 4 1/2 tabs 42-47 400 mg 2 1/2 tsp 5 tabs 48-53 480 mg 3 tsp 6 tabs 54-59 520 mg 3 1/4 tsp 6 1/2 tabs 60-64 560 mg 3 1/2 tsp 7 tabs 65-70 600 mg 3 3/4 tsp 7 1/2 tabs 71-76 640 mg 4 tsp 8 tabs 77-82 720 mg 4 1/2 tsp 9 tabs 83-88 800 mg 5 tsp 10 tabs >89 pounds or adults 650 mg to 900 mg Acetaminophen can be repeated every four hours. Maximum dose not to exceed 4000 mg a day. These maximum recommended dosages are slightly higher than the dosages written on the product container, but these dosages are very safe and below the toxic dosage for acetaminophen. You have been provided with a syringe of lidocaine. Place a small amount of this lidocaine in your ear every 3-4 hours for your pain. Do not put in more than every 3-4 hours. Follow-up with your primary care doctor in the next day or so. You also need to follow-up with a dentist. I have given you the name and number of the [facility]. FOLLOW-UP CARE: If you have been referred to a physician for follow-up care, call the physicians office for an appointment as you were instructed or within the next two days. If you experience worsening or a significant change in your symptoms, notify the physician immediately or return to the Emergency Department at any time for re-evaluation. Prescriptions: Ciprofloxacin HCl/Dexameth [Ciprodex Otic Suspension 7.5 ml Bottle] 4 drop LFT_EAR BID #1 bottle Forms: Elevated Blood Pressure, Smoking Cessation Education Referrals: [facility] [Primary Care Provider] - Follow up as needed [facility] [Provider Group] - Follow up as needed
[2018-11-17 16:23] VITALS: BP 138/77
== END 2018-11-17 16:19 | disposition home or self-care (01) ==
LOC: ER 14:40
DX: H60.502 Unspecified acute noninfective otitis externa, left ear (principal); H92.02 Otalgia, left ear; E11.9 Type 2 diabetes mellitus without complications; F17.210 Nicotine dependence, cigarettes, uncomplicated; Z71.6 Tobacco abuse counseling
CPT/HCPCS: 99406; 99282; J3490 ×2

== ENCOUNTER → 2019-04-21 | Outpatient (CLI) | payer OTHER ==
--- NOTE | 2019-04-21 13:17 | RADIOLOGY REPORT (SQ) ---
EXAM DESCRIPTION: CT CHEST WITHOUT COMPLETED DATE/TIME: 04/21/2019 12:50 pm REASON FOR STUDY: R91.8 OTHER NONSPECIFIC ABNORMAL FINDING OF LUNG FIELD R91.8 OTHER NONSPECIFIC AB NORMAL FINDING OF LUNG FIELD Q44.6 CYSTIC DISEASE OF LIVER COMPARISON: CT chest 06/17/2018 TECHNIQUE: CT scan performed of the chest without intravenous contrast. Images reviewed with lung, soft tissue and bone windows. Reconstructed coronal and sagittal MPR images reviewed. All images st ored on PACS. All CT scanners at this facility use dose modulation, iterative reconstruction, and/or weight based d osing when appropriate to reduce radiation dose to as low as reasonably achievable (ALARA). [facility]: Dose Right [facility]: CareDose [facility]: Dose Right [facility]: Teradose 4D [facility]: Helium RADIATION DOSE: CT Rad equipment meets quality standard of care and radiation dose reduction techniq ues were employed. CTDIvol: 4.0 mGy. DLP: 169 mGy-cm. mGy. LIMITATIONS: No technical limitations. FINDINGS: LUNGS AND PLEURA: No significant masses, infiltrates, or pneumothorax. No pleural effusio ns or pleural calcifications. HILAR AND MEDIASTINAL STRUCTURES: No identified masses or abnormal nodes. No obvious aneurysm. HEART AND VASCULAR STRUCTURES: No aneurysm. No pericardial effusion. UPPER ABDOMEN: No significant findings. Limited exam. THYROID AND OTHER SOFT TISSUES: No masses. No adenopathy. BONES: No significant finding. HARDWARE: Bilateral subglandular breast implants. OTHER: No other significant findings. IMPRESSION: NO SIGNIFICANT FINDING ON NON-CONTRASTED CHEST CT. TECHNICAL DOCUMENTATION: JOB ID: [id number] Quality ID # [id number]: Final reports with documentation of one or more dose reduction techniques (e.g., Au tomated exposure control, adjustment of the mA and/or kV according to patient size, use of iterative reconstruction technique) 2010 [employer]- All Rights Reserved Reading location - IP/workstation name: [email or web address]
--- NOTE | 2019-04-21 14:29 | RADIOLOGY REPORT (SQ) ---
EXAM DESCRIPTION: MRI ABDOMEN COMBO COMPLETED DATE/TIME: 04/21/2019 1:51 pm REASON FOR STUDY: Q44.6 CYSTIC DISEASE OF LIVER R91.8 OTHER NONSPECIFIC ABNORMAL FINDING OF LUNG FI ELD Q44.6 CYSTIC DISEASE OF LIVER COMPARISON: CT ABDOMEN PELVIS 06/17/2018 CT CHEST 06/17/2018, 04/21/2019 MRI ABDOMEN 06/19/2018 TECHNIQUE: Multiplanar multisequence imaging performed without and with contrast including sagittal, axial and coronal T2, axial T1, axial gradient fat sat T1, axial, sagittal and coronal fat sat T1 po st contrast. CONTRAST TYPE AND DOSE: 20 mL Dotarem. RENAL FUNCTION: Not indicated. ACR Type II contrast agent associated with few, if any, unconfounded cases of NSF LIMITATIONS: None. FINDINGS: LIVER: Normal size. No WORRISOME masses. 10 mm hemangioma in segment 8, left lobe liver best shown on T2 image 04/12. This is unchanged from multiple studies dating back to 06/17/2018. No d ilated ducts. CBD normal. SPLEEN: Normal size. No focal lesions. PANCREAS: No masses. No adjacent inflammation or peripancreatic fluid collections. Pancreatic duct no t dilated. GALLBLADDER: Contracted. No stones. No gallbladder wall thickening or pericholecystic fluid. ADRENAL GLANDS: No significant masses or asymmetry. RIGHT KIDNEY AND URETER: No masses. No hydronephrosis. LEFT KIDNEY AND URETER: No masses. No hydronephrosis. AORTA AND VESSELS: No aneurysm. No dissection. Renal arteries, SMA, celiac without stenosis. RETROPERITONEUM: No retroperitoneal adenopathy, hemorrhage or masses. BOWEL: Not well seen ABDOMINAL WALL AND PERITONEUM: No hernias. No free fluid. BONES: No acute or significant findings. OTHER: Complex left adnexal cyst identified on prior MRI has resolved. IMPRESSION: ESSENTIALLY NORMAL MRI OF THE ABDOMEN WITHOUT AND WITH CONTRAST. TECHNICAL DOCUMENTATION: JOB ID: [id number] [employer]- All Rights Reserved Reading location - IP/workstation name: [email or web address]
== END ==
LOC: RAD 12:26
PROVIDERS: ATTEND Family Medicine
DX: R91.8 Other nonspecific abnormal finding of lung field (principal); Q44.6 Cystic disease of liver; Z98.82 Breast implant status
CPT/HCPCS: 74183; 71250; A9576

== ENCOUNTER → 2019-04-26 | Outpatient (CLI) | payer OTHER ==
--- NOTE | 2019-04-27 09:46 | RADIOLOGY REPORT (SQ) ---
EXAM DESCRIPTION: MRI PELVIS COMBO COMPLETED DATE/TIME: 04/26/2019 11:20 am REASON FOR STUDY: LEFT OVARIAN CYST N83.202 N83.202 UNSPECIFIED OVARIAN CYST, LEFT SIDE COMPARISON: None. TECHNIQUE: Multiplanar multisequence imaging performed without and with contrast including axial, sa gittal and coronal T2, axial T, axial gradient fat sat T1, axial, sagittal and coronal fat sat T2 pos t contrast. CONTRAST TYPE AND DOSE: 15 mL Prohance. RENAL FUNCTION: None required. The patient is less than 50 years old. LIMITATIONS: None. FINDINGS: BLADDER AND URETHRA: No focal bladder wall thickening or nodularity. Smooth mucosa. The urethra has smooth contour with no focal asymmetry. No abnormal enhancement. No focal lesions. PELVIC SOFT TISSUES: Normal. No masses. UTERUS: Generally unremarkable. Slight fullness in the dorsal fundus likely reflects a fibroid. RIGHT OVARY: Normal follicular pattern. LEFT OVARY: Complicated mass measuring up to 3.6 cm transverse dimension. Predominantly hyperintense T1 with variable low T2 signal and thin rim of low T2 signal, well-circumscribed. Likely a hemorrha gic cyst. FREE FLUID: None. PELVIC SKELETAL STRUCTURES: No abnormal marrow signal. EXTRA PELVIS SOFT TISSUES: No masses. OTHER: No other significant finding. IMPRESSION: 1. 3.6 cm left ovarian lesion with baseline high T1 signal throughout. This likely represents a hemo rrhagic cyst. Given the presence of pelvic pain, followup may still be warranted. If the patient christopher s not had baseline ultrasound evaluation, this can be performed to compared any future followup imagi ng. If this is simply an ovarian cyst, it would be expected to resolve over time. TECHNICAL DOCUMENTATION: JOB ID: [id number] [employer]- All Rights Reserved Reading location - IP/workstation name: [email or web address]
== END ==
LOC: RAD 10:19
PROVIDERS: ATTEND Family Medicine
DX: N83.202 Unspecified ovarian cyst, left side (principal)
CPT/HCPCS: 72197; A9576

== ENCOUNTER 2020-01-07 15:52 | Emergency (ER) | payer OTHER ==
[2020-01-07 16:57] LABS: ABSOLUTE BASOPHILS # (AUTO) 0.1 10^3/uL (0.0-0.2); ABSOLUTE EOSINOPHILS # (AUTO) 0.1 10^3/uL (0.0-0.6); ABSOLUTE LYMPHOCYTES (AUTO) 2.2 10^3/uL (0.5-4.7); ABSOLUTE MONOCYTES (AUTO) 0.6 10^3/uL (0.1-1.4); ABSOLUTE NEUT (AUTO) 6.5 10^3/uL (1.7-8.2); BASOPHILS % (AUTO) 0.5 % (0-2); EOSINOPHILS % (AUTO) 1.5 % (0-6); HEMATOCRIT 37.3 % (36.0-47.0); HEMOGLOBIN 12.8 g/dL (12.0-15.5); LYMPHOCYTES % (AUTO) 23.4 % (13-45); MEAN CORPUSCULAR HEMOGLOBIN 29.1 pg (27.0-33.4); MEAN CORPUSCULAR HGB CONC 34.3 g/dL (32.0-36.0); MEAN CORPUSCULAR VOLUME 85 fl (80-97); MONOCYTES % (AUTO) 6.2 % (3-13); PLATELET COUNT 359 10^3/uL (150-450); SEGMENTED NEUTROPHILS % (AUTO) 68.4 % (42-78); TOTAL CELLS COUNTED % (AUTO) 100 %; WHITE BLOOD COUNT 9.5 10^3/uL (4.0-10.5)
[2020-01-07 17:21] LABS: ALBUMIN 4.3 g/dL (3.5-5.0); ALKALINE PHOSPHATASE 82 U/L (38-126); ANION GAP 7 (5-19); ASPARTATE AMINO TRANSFERASE 29 U/L (14-36); BILIRUBIN,TOTAL 0.4 mg/dL (0.2-1.3); BLOOD UREA NITROGEN 23 mg/dL (7-20); CALCIUM 8.6 mg/dL (8.4-10.2); CARBON DIOXIDE 27 mmol/L (22-30); CHLORIDE 102 mmol/L (98-107); CREATINE KINASE 81 U/L (30-135); GLUCOSE 82 mg/dL (75-110); POTASSIUM 3.6 mmol/L (3.6-5.0); TOTAL PROTEIN 7.7 g/dL (6.3-8.2)
[2020-01-07 17:25] LABS: APPEARANCE,URINE SLIGHTLY-CLOUDY; BILIRUBIN,URINE NEGATIVE (NEGATIVE); COLOR,URINE YELLOW; GLUCOSE, URINE NEGATIVE (NEGATIVE); KETONES,URINE NEGATIVE (NEGATIVE); LEUKOCYTE ESTERASE,URINE NEGATIVE (NEGATIVE); NITRITE,URINE NEGATIVE (NEGATIVE); PROTEIN,URINE 30 mg/dL (NEGATIVE); URINE SPECIFIC GRAVITY 1.032; UROBILINOGEN,URINE NEGATIVE mg/dL (<2.0)
--- NOTE | 2020-01-07 17:26 | RADIOLOGY REPORT (SQ) ---
EXAM DESCRIPTION: CHEST 2 VIEWS IMAGES COMPLETED DATE/TIME: 01/07/2020 5:10 pm REASON FOR STUDY: back pain/sob COMPARISON: None. EXAM PARAMETERS: NUMBER OF VIEWS: two views TECHNIQUE: Digital Frontal and Lateral radiographic views of the chest acquired. RADIATION DOSE: NA LIMITATIONS: none FINDINGS: LUNGS AND PLEURA: No opacities, masses or pneumothorax. No pleural effusion. MEDIASTINUM AND HILAR STRUCTURES: No masses or contour abnormalities. HEART AND VASCULAR STRUCTURES: Heart normal size. No evidence for failure. BONES: No acute findings. HARDWARE: None in the chest. OTHER: No other significant finding. IMPRESSION: NO ACUTE RADIOGRAPHIC FINDING IN THE CHEST. TECHNICAL DOCUMENTATION: JOB ID: [id number] 2010 [employer]- All Rights Reserved Reading location - IP/workstation name: [email or web address]
--- NOTE | 2020-01-07 17:27 | RADIOLOGY REPORT (SQ) ---
EXAM DESCRIPTION: CERV SP 3 VIEW OR LESS IMAGES COMPLETED DATE/TIME: 01/07/2020 5:10 pm REASON FOR STUDY: tachy COMPARISON: None. NUMBER OF VIEWS: Three views. TECHNIQUE: AP, lateral and odontoid radiographic images acquired of the cervical spine. LIMITATIONS: None. FINDINGS: MINERALIZATION: Normal. ALIGNMENT: Anatomic. VERTEBRAE: Vertebral bodies of normal height. DISCS: There is disc narrowing at C5-6 and C6-7 with small marginal osteophytes. HARDWARE: None in the spine. SOFT TISSUES: No masses or calcifications. Lung apices clear. OTHER: No other significant finding. IMPRESSION: Degenerative disc disease and spondylosis. No acute finding. TECHNICAL DOCUMENTATION: JOB ID: [id number] 2010 [employer]- All Rights Reserved Reading location - IP/workstation name: [email or web address]
[2020-01-07 17:32] LABS: CREATINE KINASE MB 2.34 ng/mL (<4.55); NT PRO BNP 67 pg/mL (<125)
[2020-01-07 17:33] LABS: TROPONIN I < 0.012 ng/mL
[2020-01-07 17:43] LABS: URINE BARBITURATES SCREEN NEGATIVE; URINE BENZODIAZEPINES SCREEN NEGATIVE; URINE COCAINE SCREEN NEGATIVE; URINE MARIJUANA (THC) SCREEN NEGATIVE; URINE METHADONE SCREEN NEGATIVE; URINE PHENCYCLIDINE SCREEN NEGATIVE
--- NOTE | 2020-01-07 19:18 | ER Document Report ---
ED General - General Chief Complaint: Back Pain Stated Complaint: SHORTNESS OF BREATH Time Seen by Provider: 01/07/20 16:15 Primary Care Provider: GILBERT HAMPTON MD [Primary Care Provider] - Follow up as needed Mode of Arrival: Ambulatory Information source: Patient Notes: Patient is a 44-year-old female comes emergency room with 4-day onset of neck back pain and arm pain. Patient states she woke up with it early 4 days ago and the neck and the shoulder pain come and go as well as the upper back area but will be left arm has been constant in its discomfort. Patient denies any known trauma. States that she has had some mild shortness of breath as well. She d enies having any chest pain. Patient also states she has noticed that she has been gaining weight without trying. She denies having any cardiac history on her own. Does state her most mother has had a history of Graves' disease. As well as a history of hypertension cardiac problems. Patient denies any known history of trauma to her lower extremities. She stopped smoking approximately a year ago. She is not taking any hormones. TRAVEL OUTSIDE OF THE [place] IN LAST 30 DAYS: No - HPI Onset: Other - 4 days Onset/Duration: Gradual Quality of pain: Achy Severity: Moderate Pain Level: 4 Associated symptoms: Body/muscle aches. denies: Nonproductive cough, Productive cough, Fever, Headache, Nausea, Vomiting, Sinus pain/drainage, Shortness of breath, Weakness Exacerbated by: Movement. denies: Deep breathing Relieved by: Other - Position Similar symptoms previously: No Recently seen / treated by doctor: No - Related Data Allergies/Adverse Reactions: No Known Allergies Allergy (Verified 01/07/20 16:42) Past Medical History - General Information source: Patient - Social History Smoking Status: Current Some Day Smoker Cigarette use (# per day): Yes - 1-2 special occasion Chew tobacco use (# tins/day): No Smoking Education Provided: Yes Frequency of alcohol use: Rare Drug Abuse: None Occupation: Unemployed Lives with: Family Family History: CAD, Hypertension, Malignancy, Thyroid Disfunction Patient has suicidal ideation: No Patient has homicidal ideation: No Neurological Medical History: Denies: Hx Seizures Endocrine Medical History: Reports: Hx Diabetes Mellitus Type 2 Renal/ Medical History: Denies: Hx Peritoneal Dialysis Past Surgical History: Reports: Hx Breast Surgery - augmentation, Other - Breast augmentation. Denies: Hx Hysterectomy - Immunizations Immunizations up to date: No Hx Diphtheria, Pertussis, Tetanus Vaccination: No Review of Systems - Review of Systems Constitutional: Weight gain. denies: Chills, Diaphoresis, Fever, Malaise, Weakn ess EENT: No symptoms reported Cardiovascular: No symptoms reported. denies: Chest pain Respiratory: See HPI Gastrointestinal: No symptoms reported Genitourinary: No symptoms reported Female Genitourinary: No symptoms reported Musculoskeletal: See HPI, Back pain, Joint pain, Neck pain Skin: No symptoms reported Hematologic/Lymphatic: No symptoms reported Neurological/Psychological: No symptoms reported. denies: Homicidal ideation, Suicidal ideation Physical Exam - Vital signs Vitals: Temp Pulse Resp BP Pulse Ox 98.1 F 106 H 20 132/98 H 96 01/07/20 16:03 01/07/20 16:03 01/07/20 16:03 01/07/20 16:03 01/07/20 16:03 Interpretation: Tachycardic - Notes Notes: PHYSICAL EXAMINATION: GENERAL: Well-appearing, well-nourished and in no acute distress. HEAD: Atraumatic, normocephalic. EYES: Pupils equal round and reactive to light, extraocular movements intact, conjunctiva are normal. ENT: Nares patent, oropharynx clear without exudates. Moist mucous membranes. NECK: Examination patient's neck/cervical spine shows mild reproducible tenderness at the lower portion of the posterior end of the cervical spine. Patient has decreased range of motion with rotation to the left and mild discomfort with that motion. She does not seem to have any discomfort with flexion extension. There is no discomfort or limitation of range of motion to the right. Patient has mild discomfort with cervical compression with radiation down the left arm. Also noted patient has some moderate amount of paravertebral spasms in the lower cervical spine area and C6-C7. Hard knots spasm/felt to palpation in the localized area. LUNGS: Breath sounds clear to auscultation bilaterally and equal. No wheezes rales or rhonchi. HEART: Slightly tachycardic on examination 106 bpm. And rhythm without murmurs ABDOMEN: Soft, nontender, nondistended abdomen. No guarding, no rebound. No masses appreciated. Female : deferred Musculoskeletal: Again patient has mild reproducible tenderness on her upper shoulder area anteriorly and laterally. She has decreased strength against resistance in abduction and abduction. 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 Good cap refill in nailbeds of fingers of bilaterally as well. NEUROLOGICAL: . Normal speech, normal gait. Normal sensory, motor exams PSYCH: Normal mood, normal affect. SKIN: Warm, Dry, normal turgor, no rashes or lesions noted. Course - Re-evaluation Re-evalutation: 01/07/20 19:28 After patient was reexamined after being in the ER for a while. Vital signs all were normal including heart rates less than [address] throughout most of her visit. Her pulse oximetry was 100% at all times and given patient had no other comorbidities and currently is not not smoking and is on no hormone therapy with normal saturation felt no further work-up was needed at this time. Patient has had no chest pain whatsoever. The mild shortness of breath she had was only a couple weeks ago not even associated with the past 4 days when she started with the neck and upper back pain. She is denied any fevers no cough no congestion and no recent shortness of breath. - Vital Signs Vital signs: Temp Pulse Resp BP Pulse Ox 97.7 F 102 H 18 123/71 100 01/07/20 19:56 01/07/20 19:56 01/07/20 19:56 01/07/20 19:56 01/07/20 19:56 - Laboratory Result Diagrams: 01/07/20 16:18 01/07/20 16:18 Laboratory results interpreted by pr: 01/07/20 01/07/20 16:18 16:18 Sodium 135.5 L BUN 23 H Urine Protein 30 H Urine Blood SMALL H - EKG Interpretation by Al EKG shows normal: Sinus rhythm Discharge - Discharge Clinical Impression: DDD (degenerative disc disease), cervical, Muscle spasms of neck Cervical strain Qualifiers: Encounter type: initial encounter Qualified Code(s): S16.1XXA - Strain of muscle, fascia and tendon at neck level, initial encounter Disposition: HOME, SELF-CARE Instructions: Ice Packs ([facility]), Muscle Strain ([facility]), Warm Packs ([facility]) Additional Instructions: As we discussed you also x-ray of your neck came back showing degenerative disc disease. This could be adding to the discomfort and possible muscle spasms going on around the neck area. At any point as we discussed we are going to try you on a short taper of steroids along with a muscle relaxer. Ice alternating with heat 3-4 times a day. You can also take Tylenol. As we also discussed [facility]. Should you have any concerns or problems she can was return to ER for recheck. Prescriptions: Prednisone [Deltasone 10 mg Tablet] 10 mg PO ASDIR PRN #21 tablet PRN Reason: Cyclobenzaprine HCl [Flexeril 10 mg Tablet] 10 mg PO TIDP PRN #15 tab PRN Reason: Forms: Elevated Blood Pressure, Smoking Cessation Education Referrals: GILBERT HAMPTON MD [Primary Care Provider] - Follow up as needed
--- NOTE | 2020-01-07 19:36 | EKG REPORT ---
SEVERITY:- NORMAL ECG - SINUS RHYTHM : Confirmed by: Wilberto Lockett MD 07-Jan-2020 19:36:08
[2020-01-07 19:56] VITALS: BP 123/71
== END 2020-01-07 19:56 | disposition home or self-care (01) ==
LOC: ER 15:52
DX: S16.1XXA Strain of muscle, fascia and tendon at neck level, initial encounter (principal); M50.30 Other cervical disc degeneration, unspecified cervical region; M62.830 Muscle spasm of back; M54.9 Dorsalgia, unspecified; R06.02 Shortness of breath; M25.512 Pain in left shoulder; M79.602 Pain in left arm; X58.XXXA Exposure to other specified factors, initial encounter; I10 Essential (primary) hypertension; F17.210 Nicotine dependence, cigarettes, uncomplicated; E11.9 Type 2 diabetes mellitus without complications
CPT/HCPCS: 36415; 71046; 72040; 80053; 80307; 81001; 81025; 82550; 82553; 83880; 84443; 84484; 85025; 93005; 93010; 99283